=== PATIENT | female | born 1945 | race Caucasian/White ===

== ENCOUNTER → 2016-09-12 | Outpatient (CLI) | payer MEDICARE ==
[2016-09-12 09:30] LABS: PROTHROMBIN TIME 26.6 SEC (11.4-15.4)
== END ==
LOC: OD 08:42
PROVIDERS: ATTEND Internal Medicine
DX: I48.91 Unspecified atrial fibrillation (principal); I48.92 Unspecified atrial flutter; Z79.01 Long term (current) use of anticoagulants
CPT/HCPCS: 36415; 85610

== ENCOUNTER 2017-12-27 02:01 | Inpatient (IN) | payer MEDICARE ==
[2017-12-27 03:05] LABS: ABSOLUTE EOSINOPHILS # (AUTO) 0.1 10^3/uL (0.0-0.6); ABSOLUTE MONOCYTES (AUTO) 0.5 10^3/uL (0.1-1.4); ABSOLUTE NEUT (AUTO) 7.1 10^3/uL (1.7-8.2); BASOPHILS % (AUTO) 0.3 % (0-2); EOSINOPHILS % (AUTO) 1.4 % (0-6); HEMATOCRIT 40.2 % (36.0-47.0); HEMOGLOBIN 13.4 g/dL (12.0-15.5); LYMPHOCYTES % (AUTO) 11.1 % (13-45); MEAN CORPUSCULAR HEMOGLOBIN 30.8 pg (27.0-33.4); MEAN CORPUSCULAR HGB CONC 33.4 g/dL (32.0-36.0); MEAN CORPUSCULAR VOLUME 92 fl (80-97); MONOCYTES % (AUTO) 6.1 % (3-13); PLATELET COUNT 186 10^3/uL (150-450); RED BLOOD COUNT 4.37 10^6/uL (3.72-5.28); RED CELL DISTRIBUTION WIDTH 13.9 % (11.5-14.0); SEGMENTED NEUTROPHILS % (AUTO) 81.1 % (42-78); TOTAL CELLS COUNTED % (AUTO) 100 %; WHITE BLOOD COUNT 8.8 10^3/uL (4.0-10.5)
[2017-12-27 03:11] LABS: ALANINE AMINOTRANSFERASE 23 U/L (9-52); ALBUMIN 3.1 g/dL (3.5-5.0); ALKALINE PHOSPHATASE 56 U/L (38-126); ANION GAP 12 (5-19); ASPARTATE AMINO TRANSFERASE 21 U/L (14-36); BILIRUBIN,DIRECT 0.3 mg/dL (0.0-0.4); BILIRUBIN,TOTAL 0.5 mg/dL (0.2-1.3); BLOOD UREA NITROGEN 26 mg/dL (7-20); CALCIUM 8.4 mg/dL (8.4-10.2); CARBON DIOXIDE 26 mmol/L (22-30); CHLORIDE 109 mmol/L (98-107); GLUCOSE 128 mg/dL (75-110); POTASSIUM 3.6 mmol/L (3.6-5.0); SODIUM 147.2 mmol/L (137-145); TOTAL PROTEIN 5.8 g/dL (6.3-8.2)
--- NOTE | 2017-12-27 03:19 | ER Document Report ---
ED General - General Chief Complaint: Rectal Bleeding Stated Complaint: BLEEDING Notes: Patient is 72-year-old female presents with complaint of rectal bleeding. She is on warfarin for history of atrial fibrillation. She does not have an artificial heart valve. Her GI doctor is Dr. Carrera. Said several bloody bowel movements and passing clots today. The last week she has had some intermittent abdominal cramping. She does have history of diverticulosis. TRAVEL OUTSIDE OF THE [place] IN LAST 30 DAYS: No - Related Data Allergies/Adverse Reactions: codeine [Codeine] Allergy (Verified 12/27/17 02:52) Penicillins Allergy (Verified 12/27/17 02:52) Past Medical History - Social History Smoking Status: Never Smoker Chew tobacco use (# tins/day): No Frequency of alcohol use: None Drug Abuse: None Family History: Reviewed & Not Pertinent Patient has suicidal ideation: No Patient has homicidal ideation: No - Past Medical History Cardiac Medical History: Reports: Hx Atrial Fibrillation, Hx Hypertension Renal/ Medical History: Denies: Hx Peritoneal Dialysis GI Medical History: Reports: Hx Gastroesophageal Reflux Disease Past Surgical History: Reports: Hx Cardiac Surgery - pacemaker, Hx Cholecystectomy, Hx Hysterectomy - Immunizations Hx Diphtheria, Pertussis, Tetanus Vaccination: Yes Review of Systems - Review of Systems Notes: My Normal Review Basic REVIEW OF SYSTEMS: CONSTITUTIONAL : Denies fever, chills, or sweats. Denies recent illness. EENT: Denies eye, ear, throat, or mouth pain or symptoms. Denies nasal or sinus congestion. RESPIRATORY: Denies cough, cold, or chest congestion. Denies shortness of breath, difficulty breathing, or wheezing. GASTROINTESTINAL: Intermittent crampy abdominal pain. Denies nausea, vomiting, or diarrhea. rectal bleeding GENITOURINARY: Denies difficulty urinating, painful urination, burning, frequency, or blood in urine. MUSCULOSKELETAL: Denies neck or back pain or joint pain or swelling. SKIN: Denies rash or skin lesions. HEMATOLOGIC : On warfarin NEUROLOGICAL: Denies altered mental status or loss of consciousness. Denies headache. Denies weakness or paralysis or loss of use of either side. Denies problems with gait or speech. Denies sensory or motor loss. ALL OTHER SYSTEMS REVIEWED AND NEGATIVE. Physical Exam - Vital signs Vitals: Resp BP Pulse Ox 21 H 127/76 H 100 12/27/17 02:10 12/27/17 02:10 12/27/17 02:10 - Notes Notes: General Appearance: Well nourished, alert, cooperative, no acute distress, no obvious discomfort. Well-appearing. Vitals: reviewed, See vital signs table. Head: no swelling or tenderness to the head Eyes: PERRL, EOMI, Conjuctiva clear Mouth: No decreasd moisture Throat: No tonsillar inflammation, Neck: Supple, no neck tenderness, No thyromegaly Lungs: No wheezing, No rales, No rhonci, No accessory muscle use, good air exchange bilaterally. Heart: Normal rate, Regular rythm, No murmur, no rub Abdomen: Normal BS, soft, No rigidity, No abdominal tenderness to palpation, No guarding, no rebound, no abdominal masses, no organomegaly Rectal exam: Small external hemorrhoid that is not actively bleeding. Extremities: strength 5/5 in all extremities, good pulses in all extremities, no swelling or tenderness in the extremities, no edema. Skin: warm, dry, appropriate color, no rash Neuro: speech clear, oriented x 3, normal affect, responds appropriately to questions. Course - Re-evaluation Re-evalutation: 12/27/17 07:08 Patient did have another bloody bowel movement. Therefore gave her FFP due to the recurrent passing of some blood clots. Patient does not have abdominal pain to palpation therefore I do not think CT scan is needed at this time. Suspect she most likely is diverticular bleed. Due to her history of being on antibiotics 2 weeks ago I did order a C. difficile. This is pending. I did speak with the hospitalist, Dr. Wise, agrees with the patient. Dictation of this chart was performed using voice recognition software; therefore, there may be some unintended grammatical errors. - Vital Signs Vital signs: Temp Pulse Resp BP Pulse Ox 97.7 F 90 12 121/65 99 12/27/17 06:17 12/27/17 06:17 12/27/17 06:17 12/27/17 06:17 12/27/17 06:17 - Laboratory Result Diagrams: 12/27/17 02:07 12/27/17 02:07 Laboratory results interpreted by me: 12/27/17 12/27/17 12/27/17 02:07 02:07 02:07 Seg Neutrophils % 81.1 H Lymphocytes % 11.1 L PT 28.0 H Sodium 147.2 H Chloride 109 H BUN 26 H Est GFR (Non-Af Amer) 51 L Glucose 128 H Total Protein 5.8 L Albumin 3.1 L - EKG Interpretation by Me Additional EKG results interpreted by me: 12/27/17 03:18 EKG is reviewed and interpreted by me. EKG shows atrial fibrillation with rate of [address] segment elevation. Patient does have T wave inversions in the anterolateral precordial leads she also has T wave inversions in inferior leads. QRS duration and QTc intervals are within normal range. No old EKG available for comparison. 12/27/17 03:19 Discharge - Discharge Clinical Impression: Rectal bleeding Condition: Stable Disposition: ADMITTED OBSERVATION Admitting Provider: Hospitalist Unit Admitted: ICU
[2017-12-27 03:52] LABS: INTERNATIONAL RATION (INR) 2.48
[2017-12-27] MEDS ORDERED: IPRATROPIUM/ALBUTEROL 0.5-2.5 MG/3 ML AMPUL NEB PRN (04:41)
[2017-12-27] MEDS ORDERED: ACETAMINOPHEN 325 MG TABLET PO PRN (04:41)
[2017-12-27] MEDS ORDERED: NORMAL SALINE 250 ML IV PRN (04:45)
[2017-12-27] MEDS: NORMAL SALINE 1000 ML 1,000 ML IV SCH ×3 (05:04→18:35)
[2017-12-27] MEDS: HEPARIN SOD (PORCINE) 5,000 UNIT/ML 1 ML SYRINGE SUBCUT SCH ×3 (05:05→22:12)
[2017-12-27 06:59] LABS: ABSOLUTE LYMPHOCYTES (AUTO) 0.9 10^3/uL (0.5-4.7); ABSOLUTE MONOCYTES (AUTO) 0.5 10^3/uL (0.1-1.4); ABSOLUTE NEUT (AUTO) 7.8 10^3/uL (1.7-8.2); BASOPHILS % (AUTO) 0.5 % (0-2); EOSINOPHILS % (AUTO) 0.4 % (0-6); HEMATOCRIT 38.3 % (36.0-47.0); LYMPHOCYTES % (AUTO) 9.3 % (13-45); MEAN CORPUSCULAR HGB CONC 33.9 g/dL (32.0-36.0); MEAN CORPUSCULAR VOLUME 92 fl (80-97); MONOCYTES % (AUTO) 5.7 % (3-13); PLATELET COUNT 181 10^3/uL (150-450); RED BLOOD COUNT 4.17 10^6/uL (3.72-5.28); RED CELL DISTRIBUTION WIDTH 13.6 % (11.5-14.0); SEGMENTED NEUTROPHILS % (AUTO) 84.1 % (42-78); TOTAL CELLS COUNTED % (AUTO) 100 %; WHITE BLOOD COUNT 9.3 10^3/uL (4.0-10.5)
[2017-12-27] MEDS: METOPROLOL SUCCINATE 50 MG TAB.SR.24H PO SCH ×2 (09:57→22:16)
[2017-12-27] MEDS ORDERED: METOPROLOL SUCCINATE 50 MG TAB.SR.24H PO SCH (10:00)
[2017-12-27] MEDS ORDERED: PEG 3350/NA SULF,BICARB,CL/KCL 4000 ML PO ONE (10:30)
[2017-12-27 14:05] LABS: ABSOLUTE EOSINOPHILS # (AUTO) 0.1 10^3/uL (0.0-0.6); ABSOLUTE LYMPHOCYTES (AUTO) 1.1 10^3/uL (0.5-4.7); ABSOLUTE MONOCYTES (AUTO) 0.6 10^3/uL (0.1-1.4); ABSOLUTE NEUT (AUTO) 5.9 10^3/uL (1.7-8.2); BASOPHILS % (AUTO) 0.6 % (0-2); EOSINOPHILS % (AUTO) 0.8 % (0-6); LYMPHOCYTES % (AUTO) 13.9 % (13-45); MEAN CORPUSCULAR HEMOGLOBIN 31.5 pg (27.0-33.4); MEAN CORPUSCULAR HGB CONC 34.6 g/dL (32.0-36.0); MEAN CORPUSCULAR VOLUME 91 fl (80-97); MONOCYTES % (AUTO) 8.1 % (3-13); PLATELET COUNT 150 10^3/uL (150-450); RED CELL DISTRIBUTION WIDTH 13.6 % (11.5-14.0); SEGMENTED NEUTROPHILS % (AUTO) 76.6 % (42-78); TOTAL CELLS COUNTED % (AUTO) 100 %; WHITE BLOOD COUNT 7.7 10^3/uL (4.0-10.5)
[2017-12-27 14:09] LABS: HEMOGLOBIN 10.7 g/dL (12.0-15.5)
[2017-12-27] MEDS ORDERED: ONDANSETRON HCL INJ/PF 4 MG/2 ML SDV ONE (17:35)
[2017-12-27] MEDS ORDERED: DIPHENHYDRAMINE HCL 50 MG/ML VIAL ONE (17:35)
[2017-12-27] MEDS ORDERED: NALOXONE HCL INJ/PF 0.4 MG/1 ML SDV ONE (17:35)
[2017-12-27] MEDS ORDERED: FENTANYL CITRATE INJ/PF 100 MCG/2 ML AMPUL ONE (17:36)
[2017-12-27] MEDS ORDERED: MIDAZOLAM 2 MG/2 ML INJ ONE ×2 (17:36)
[2017-12-27] MEDS ORDERED: EPINEPHRINE INJ 1 MG/10 ML DISP.SYRIN ONE (17:37)
[2017-12-27] MEDS ORDERED: FLUMAZENIL INJ 0.5 MG/5 ML VIAL ONE (17:37)
[2017-12-27] MEDS ORDERED: GLUCAGON,HUMAN RECOMB 1 MG INJ ONE (17:37)
--- NOTE | 2017-12-27 18:01 | PDOC H&P ---
History of Present Illness Admission Date/PCP: 12/27/17 04:58 KAREEN MCGOVERN MD Patient complains of: Bright red blood per rectum History of Present Illness: BOB ROD is a 72 year old female with a past medical history of diverticulosis, obesity, atrial fibrillation on Coumadin with an INR of 2.8. Patient presents with several episodes of bright red blood per rectum preceded by abdominal cramping and several days of severe constipation. She is unable to identify blood loss in the emergency room she has several more episodes of bright red blood per rectum. She is ordered FFP, typed and screened, 2 L of normal saline and is referred to the hospitalist for admission. She denies pain or previous episode. Past Medical History Cardiac Medical History: Reports: Atrial Fibrillation, Hypertension Pulmonary Medical History: Reports: Sleep Apnea Endocrine Medical History: Reports: Obesity GI Medical History: Reports: Diverticulitis, Gastroesophageal Reflux Disease Past Surgical History Past Surgical History: Reports: Cholecystectomy, Hysterectomy Social History Information Source: Patient Smoking Status: Never Smoker Frequency of Alcohol Use: None Hx Recreational Drug Use: No Hx Prescription Drug Abuse: No - Advance Directive Resuscitation Status: Full Code Family History Family History: Reviewed & Not Pertinent Parental Family History Reviewed: Yes Children Family History Reviewed: Yes Sibling(s) Family History Reviewed.: Yes Medication/Allergy Home Medications: Amlodipine Besylate [Norvasc 5 mg Tablet] 5 mg PO DAILY 12/27/17 Irbesartan/Hydrochlorothiazide [Avalide 300-12.5 Mg Tablet] 1 each PO DAILY 06/04 Linaclotide [Linzess] 290 mcg PO DAILY 12/27/17 Metoprolol Succinate [Toprol XL 100 mg Tablet] 150 mg PO Q12 12/27/17 Omeprazole 40 mg PO DAILYP PRN 12/27/17 Warfarin Sodium [Coumadin 3 mg Tablet] 4.5 mg PO QHS 12/27/17 Allergies/Adverse Reactions: codeine [Codeine] Allergy (Verified 12/27/17 08:39) Penicillins Allergy (Verified 12/27/17 08:39) Review of Systems Constitutional: ABSENT: chills, fever(s), headache(s), weight gain, weight loss Eyes: ABSENT: visual disturbances Ears: ABSENT: hearing changes Cardiovascular: ABSENT: chest pain, dyspnea on exertion, edema, orthropnea, palpitations Respiratory: ABSENT: cough, hemoptysis Gastrointestinal: ABSENT: abdominal pain, constipation, diarrhea, hematemesis, hematochezia, nausea, vomiting Genitourinary: ABSENT: dysuria, hematuria Musculoskeletal: ABSENT: joint swelling Integumentary: ABSENT: rash, wounds Neurological: ABSENT: abnormal gait, abnormal speech, confusion, dizziness, focal weakness, syncope Psychiatric: ABSENT: anxiety, depression, homidical ideation, suicidal ideation Endocrine: ABSENT: cold intolerance, heat intolerance, polydipsia, polyuria Hematologic/Lymphatic: ABSENT: easy bleeding, easy bruising Physical Exam Vital Signs: Temp Pulse Resp BP Pulse Ox 97.7 F 87 19 149/75 H 100 12/27/17 16:11 12/27/17 16:11 12/27/17 16:41 12/27/17 16:41 12/27/17 16:41 Intake & Output 12/26/17 12/27/17 12/28/17 11:59 11:59 11:59 Intake Total 0 576 Output Total 200 Balance -200 576 Weight 113.6 kg General appearance: PRESENT: cooperative, mild distress, morbidly obese, well- developed, well-nourished. ABSENT: disheveled Head exam: PRESENT: atraumatic, normocephalic Eye exam: PRESENT: conjunctiva pink, EOMI, PERRLA. ABSENT: scleral icterus Ear exam: PRESENT: normal external ear exam Mouth exam: PRESENT: moist, tongue midline Neck exam: ABSENT: carotid bruit, JVD, lymphadenopathy, thyromegaly Respiratory exam: PRESENT: clear to auscultation aristides. ABSENT: rales, rhonchi, wheezes Cardiovascular exam: PRESENT: RRR. ABSENT: diastolic murmur, rubs, systolic murmur Pulses: PRESENT: normal dorsalis pedis pul Vascular exam: PRESENT: normal capillary refill GI/Abdominal exam: PRESENT: normal bowel sounds, soft. ABSENT: distended, guarding, mass, organolmegaly, rebound, tenderness Rectal exam: PRESENT: deferred Extremities exam: PRESENT: full ROM. ABSENT: calf tenderness, clubbing, pedal edema Neurological exam: PRESENT: alert, awake, oriented to person, oriented to place , oriented to time, oriented to situation, CN II-XII grossly intact. ABSENT: motor sensory deficit Psychiatric exam: PRESENT: appropriate affect, normal mood. ABSENT: homicidal ideation, suicidal ideation Skin exam: PRESENT: dry, intact, warm. ABSENT: cyanosis, rash Results Laboratory Results: 12/27/17 13:53 12/27/17 12/27/17 06:45 13:53 WBC 9.3 7.7 RBC 4.17 3.40 L Hgb 13.0 10.7 L D Hct 38.3 31.0 L MCV 92 91 MCH 31.0 31.5 MCHC 33.9 34.6 RDW 13.6 13.6 Plt Count 181 150 Seg Neutrophils % 84.1 H 76.6 Lymphocytes % 9.3 L 13.9 Monocytes % 5.7 8.1 Eosinophils % 0.4 0.8 Basophils % 0.5 0.6 Absolute Neutrophils 7.8 5.9 Absolute Lymphocytes 0.9 1.1 Absolute Monocytes 0.5 0.6 Absolute Eosinophils 0.0 0.1 Absolute Basophils 0.0 0.0 Assessment & Plan - Diagnosis (1) Rectal bleeding Is this a current diagnosis for this admission?: Yes Plan: ICU admission, likely diverticular bleed given history of constipation and diverticulosis. Type and screen 2 units of packed red blood cells, FFP given continued bright red blood per rectum. Gastroenterology consulted. (2) Atrial fibrillation Is this a current diagnosis for this admission?: Yes Plan: Rate controlled, continue outpatient regiment (3) Anticoagulation adequate Is this a current diagnosis for this admission?: Yes Plan: FFP ordered, Coumadin held for active bleed. - Time Time Spent: 50 to 70 Minutes - Inpatient Certification Medical Necessity: Need Close Monitoring Due to Risk of Patient Decompensation
[2017-12-27 18:04] LABS: ABSOLUTE EOSINOPHILS # (AUTO) 0.1 10^3/uL (0.0-0.6); ABSOLUTE LYMPHOCYTES (AUTO) 1.2 10^3/uL (0.5-4.7); ABSOLUTE MONOCYTES (AUTO) 0.6 10^3/uL (0.1-1.4); ABSOLUTE NEUT (AUTO) 5.1 10^3/uL (1.7-8.2); BASOPHILS % (AUTO) 0.5 % (0-2); EOSINOPHILS % (AUTO) 1.1 % (0-6); HEMATOCRIT 29.1 % (36.0-47.0); LYMPHOCYTES % (AUTO) 16.7 % (13-45); MEAN CORPUSCULAR HEMOGLOBIN 31.2 pg (27.0-33.4); MEAN CORPUSCULAR HGB CONC 34.4 g/dL (32.0-36.0); MEAN CORPUSCULAR VOLUME 91 fl (80-97); MONOCYTES % (AUTO) 8.8 % (3-13); PLATELET COUNT 151 10^3/uL (150-450); RED BLOOD COUNT 3.21 10^6/uL (3.72-5.28); RED CELL DISTRIBUTION WIDTH 13.5 % (11.5-14.0); SEGMENTED NEUTROPHILS % (AUTO) 72.9 % (42-78); TOTAL CELLS COUNTED % (AUTO) 100 %; WHITE BLOOD COUNT 6.9 10^3/uL (4.0-10.5)
--- NOTE | 2017-12-27 20:23 | PDOC CONSULTATION ---
Consultation Consult Date: 12/27/17 History of Present Illness Admission Date/PCP: 12/27/17 04:58 KAREEN MCGOVERN MD History of Present Illness: BOB ROD is a 72 year old female Patient was admitted last night with acute rectal bleeding. She started bleeding yesterday and has had multiple episodes of bright red blood per rectum. She denies abdominal pain, nausea, or vomiting. She has a history of diverticular disease and her last colonoscopy was almost 10 years ago. On admission her hemoglobin was 13 and 12 hours later it is down to 10.7. Her platelet count is normal but her INR was 2.48. She was taking warfarin at home and has received 2 units of FFP. Past Medical History Cardiac Medical History: Reports: Atrial Fibrillation, Hypertension Pulmonary Medical History: Reports: Sleep Apnea Endocrine Medical History: Reports: Obesity GI Medical History: Reports: Diverticulitis, Gastroesophageal Reflux Disease Past Surgical History Past Surgical History: Reports: Cholecystectomy, Hysterectomy Social History Smoking Status: Never Smoker Frequency of Alcohol Use: None Hx Recreational Drug Use: No Hx Prescription Drug Abuse: No - Advance Directive Resuscitation Status: Full Code Family History Family History: Reviewed & Not Pertinent Parental Family History Reviewed: No Children Family History Reviewed: NA Sibling(s) Family History Reviewed.: NA Medication/Allergy Home Medications: Amlodipine Besylate [Norvasc 5 mg Tablet] 5 mg PO DAILY 12/27/17 Irbesartan/Hydrochlorothiazide [Avalide 300-12.5 Mg Tablet] 1 each PO DAILY 06/04 Linaclotide [Linzess] 290 mcg PO DAILY 12/27/17 Metoprolol Succinate [Toprol XL 100 mg Tablet] 150 mg PO Q12 12/27/17 Omeprazole 40 mg PO DAILYP PRN 12/27/17 Warfarin Sodium [Coumadin 3 mg Tablet] 4.5 mg PO QHS 12/27/17 Allergies/Adverse Reactions: codeine [Codeine] Allergy (Verified 12/27/17 08:39) Penicillins Allergy (Verified 12/27/17 08:39) Review of Systems All systems: reviewed and no additional remarkable complaints except as stated Physical Exam Vital Signs: Temp Pulse Resp BP Pulse Ox 98.1 F 111 H 19 134/68 H 100 12/27/17 18:00 12/27/17 18:00 12/27/17 18:11 12/27/17 18:11 12/27/17 18:11 Intake & Output 12/26/17 12/27/17 12/28/17 06:59 06:59 06:59 Intake Total 2926 Output Total 200 Balance 2726 Weight 113.6 kg 113.6 kg Exam: General: Patient is alert. HEENT: There is some pallor but no jaundice. PERRLA. Oropharynx normal Respiratory: No chest deformity. No respiratory distress. Chest wall palpitation was unremarkable. Breath sounds were normal Cardiovascular: Heart sounds 1 and 2 normal with no murmurs. Abdominal: Abdomen is soft with no tenderness. Difficult to feel for masses due to obesity. No ascites demonstrated. Bowel sounds active. Rectal examination was deferred. Extremities: No edema Neurological: Alert and oriented x4. Grossly nonfocal. Normal speech Skin: No significant rash Psychological: Normal affect Results Laboratory Results: 12/27/17 17:55 12/27/17 12/27/17 12/27/17 06:45 13:53 17:55 WBC 9.3 7.7 6.9 RBC 4.17 3.40 L 3.21 L Hgb 13.0 10.7 L D 10.0 L Hct 38.3 31.0 L 29.1 L MCV 92 91 91 MCH 31.0 31.5 31.2 MCHC 33.9 34.6 34.4 RDW 13.6 13.6 13.5 Plt Count 181 150 151 Seg Neutrophils % 84.1 H 76.6 72.9 Lymphocytes % 9.3 L 13.9 16.7 Monocytes % 5.7 8.1 8.8 Eosinophils % 0.4 0.8 1.1 Basophils % 0.5 0.6 0.5 Absolute Neutrophils 7.8 5.9 5.1 Absolute Lymphocytes 0.9 1.1 1.2 Absolute Monocytes 0.5 0.6 0.6 Absolute Eosinophils 0.0 0.1 0.1 Absolute Basophils 0.0 0.0 0.0 Assessment & Plan - Diagnosis (1) Diverticulosis of colon with hemorrhage Is this a current diagnosis for this admission?: Yes Plan: I suspect this is diverticular bleeding made worse by her coagulopathy from Coumadin use. The need for upper and lower endoscopy was explained to the patient and she is in agreement. She may need to be transfused if her hemoglobin continues to drop. (2) Coagulopathy Is this a current diagnosis for this admission?: Yes (3) Atrial fibrillation Is this a current diagnosis for this admission?: Yes (4) Rectal bleeding Is this a current diagnosis for this admission?: Yes
--- NOTE | 2017-12-27 20:26 | Operative Report ---
Operative Report DATE OF SURGERY: 12/27/17 Operative Report: Pre-op diagnosis: Acute GI bleeding Post-op diagnosis: 1. Mild antral gastritis 2. Severe sigmoid diverticulosis with scattered diverticuli in the mid and right colon 3. Maroon colored blood noted all over the colon more so in the left colon Surgery: Upper endoscopy with biopsy, and Colonoscopy Medications: Versed 2mg, Fentanyl 100mcg IV push Tissue removed: Antral and gastric body biopsy Procedure: After informed consent obtained from patient, patient's pharynx was sprayed with [place] and conscious sedation was achieved. The upper endoscope was then inserted into the esophagus under direct vision and advanced into the stomach and further into the duodenum. Detailed examination of the duodenum, stomach and the esophagus was then performed. A digital rectal examination was performed and this was unremarkable. The colonoscope was inserted into the rectum and advanced to the cecum. The appendiceal orifice and the terminal ileum were both identified. The mucosa was examined into details as the colonoscope was slowly pulled out of the patient. The endoscope was retroflexed in the rectum. Patient tolerated the procedure well. Findings Stomach: Mild erythema in the antrum Duodenum: Normal Cecum: Normal Ascending colon: Few diverticuli Transverse colon: Few diverticuli Descending colon: Multiple diverticuli Sigmoid colon: Multiple [place] diverticuli with some areas of spasm Rectum: Normal except for internal hemorrhoids Plan: She likely bled from her diverticular disease. No bleeding diverticuli was identified. She will need a bleeding scan and surgical evaluation if active bleeding resumes OPERATION: .
--- NOTE | 2017-12-27 20:30 | Operative Report ---
Operative Report DATE OF SURGERY: 12/27/17 Operative Report: This is an addendum to the procedure note dictated on 12/27/2017 at 825p. Patient did have two polyps in the sigmoid ranging from 6-8 mm. These were not removed due to her current active GI bleed and elevated INR. She will need a repeat colonoscopy in the future to remove this polyps OPERATION: .
--- NOTE | 2017-12-27 20:34 | EKG REPORT ---
SEVERITY:- ABNORMAL ECG - AFIB/FLUT AND V-PACED COMPLEXES : Confirmed by: Pat Arnett MD 27-Dec-2017 20:33:27
[2017-12-27 21:12] LABS: INTERNATIONAL RATION (INR) 1.72
[2017-12-27] MEDS ORDERED: METOPROLOL TARTRATE PF/INJ 5 MG/5 ML SDV IV ONE (22:00)
[2017-12-27] MEDS: 1/2 NORMAL SALINE 1,000 ML IV PRN (22:17)
[2017-12-28 00:26] LABS: ABSOLUTE BASOPHILS # (AUTO) 0.1 10^3/uL (0.0-0.2); ABSOLUTE EOSINOPHILS # (AUTO) 0.1 10^3/uL (0.0-0.6); ABSOLUTE MONOCYTES (AUTO) 0.8 10^3/uL (0.1-1.4); ABSOLUTE NEUT (AUTO) 8.2 10^3/uL (1.7-8.2); BASOPHILS % (AUTO) 0.5 % (0-2); EOSINOPHILS % (AUTO) 0.8 % (0-6); HEMATOCRIT 27.4 % (36.0-47.0); HEMOGLOBIN 9.4 g/dL (12.0-15.5); LYMPHOCYTES % (AUTO) 9.7 % (13-45); MEAN CORPUSCULAR HGB CONC 34.3 g/dL (32.0-36.0); MEAN CORPUSCULAR VOLUME 90 fl (80-97); MONOCYTES % (AUTO) 7.9 % (3-13); PLATELET COUNT 137 10^3/uL (150-450); RED BLOOD COUNT 3.02 10^6/uL (3.72-5.28); RED CELL DISTRIBUTION WIDTH 13.6 % (11.5-14.0); SEGMENTED NEUTROPHILS % (AUTO) 81.1 % (42-78); TOTAL CELLS COUNTED % (AUTO) 100 %
[2017-12-28] MEDS: 1/2 NORMAL SALINE 1,000 ML IV PRN (05:41)
[2017-12-28] MEDS: HEPARIN SOD (PORCINE) 5,000 UNIT/ML 1 ML SYRINGE SUBCUT SCH ×3 (05:50→21:50)
[2017-12-28 06:43] LABS: ALANINE AMINOTRANSFERASE 24 U/L (9-52); ALBUMIN 2.9 g/dL (3.5-5.0); ALKALINE PHOSPHATASE 43 U/L (38-126); ANION GAP 10 (5-19); ASPARTATE AMINO TRANSFERASE 27 U/L (14-36); BILIRUBIN,DIRECT 0.3 mg/dL (0.0-0.4); BILIRUBIN,TOTAL 0.8 mg/dL (0.2-1.3); BLOOD UREA NITROGEN 14 mg/dL (7-20); CALCIUM 7.7 mg/dL (8.4-10.2); CARBON DIOXIDE 26 mmol/L (22-30); CHLORIDE 110 mmol/L (98-107); GLUCOSE 86 mg/dL (75-110); PHOSPHORUS 2.5 mg/dL (2.5-4.5); POTASSIUM 3.2 mmol/L (3.6-5.0); SODIUM 145.7 mmol/L (137-145); TOTAL PROTEIN 5.6 g/dL (6.3-8.2)
[2017-12-28 07:03] LABS: ABSOLUTE EOSINOPHILS # (AUTO) 0.1 10^3/uL (0.0-0.6); ABSOLUTE LYMPHOCYTES (AUTO) 0.6 10^3/uL (0.5-4.7); ABSOLUTE MONOCYTES (AUTO) 0.7 10^3/uL (0.1-1.4); ABSOLUTE NEUT (AUTO) 6.5 10^3/uL (1.7-8.2); BASOPHILS % (AUTO) 0.6 % (0-2); EOSINOPHILS % (AUTO) 1.4 % (0-6); HEMATOCRIT 29.6 % (36.0-47.0); HEMOGLOBIN 10.2 g/dL (12.0-15.5); LYMPHOCYTES % (AUTO) 7.5 % (13-45); MEAN CORPUSCULAR HEMOGLOBIN 31.5 pg (27.0-33.4); MEAN CORPUSCULAR HGB CONC 34.6 g/dL (32.0-36.0); MEAN CORPUSCULAR VOLUME 91 fl (80-97); MONOCYTES % (AUTO) 9.1 % (3-13); PLATELET COUNT 129 10^3/uL (150-450); RED BLOOD COUNT 3.25 10^6/uL (3.72-5.28); RED CELL DISTRIBUTION WIDTH 13.3 % (11.5-14.0); SEGMENTED NEUTROPHILS % (AUTO) 81.4 % (42-78); TOTAL CELLS COUNTED % (AUTO) 100 %; WHITE BLOOD COUNT 7.9 10^3/uL (4.0-10.5)
[2017-12-28] MEDS: METOPROLOL SUCCINATE 50 MG TAB.SR.24H PO SCH ×2 (10:03→21:58)
--- NOTE | 2017-12-28 14:45 | PDOC PROGRESS REPORT ---
Subjective Progress Note for:: 12/28/17 Subjective:: Doing better today. Noted small amount of blood in stool today however significantly decreased. Colonoscopy yesterday and tolerated well. Tolerated cler liquids, will advance. No other complaints. Denies fevers, chills, CP. Agreeable with transfer out of ICU today. Reason For Visit: DIVERTIC BLEED, ANTICOAGULATED, AFIB Physical Exam Vital Signs: Temp Pulse Resp BP Pulse Ox 99.4 F 75 21 H 131/68 H 95 12/28/17 12:19 12/28/17 12:19 12/28/17 12:19 12/28/17 12:19 12/28/17 12:19 Intake & Output 12/27/17 12/28/17 12/29/17 06:59 06:59 06:59 Intake Total 3326 Output Total 1080 Balance 2246 Weight 113.6 kg 115.5 kg General appearance: PRESENT: no acute distress, cooperative, obese Head exam: PRESENT: normocephalic Mouth exam: PRESENT: moist Respiratory exam: PRESENT: unlabored Cardiovascular exam: PRESENT: RRR. ABSENT: tachycardia GI/Abdominal exam: PRESENT: normal bowel sounds, soft. ABSENT: tenderness Neurological exam: PRESENT: alert, awake, CN II-XII grossly intact Psychiatric exam: PRESENT: appropriate affect Skin exam: PRESENT: dry, intact Results Laboratory Results: 12/28/17 06:09 12/28/17 06:09 12/27/17 12/28/17 12/28/17 17:55 00:17 06:09 WBC 6.9 10.0 RBC 3.21 L 3.02 L Hgb 10.0 L 9.4 L Hct 29.1 L 27.4 L MCV 91 90 MCH 31.2 31.0 MCHC 34.4 34.3 RDW 13.5 13.6 Plt Count 151 137 L Seg Neutrophils % 72.9 81.1 H Lymphocytes % 16.7 9.7 L Monocytes % 8.8 7.9 Eosinophils % 1.1 0.8 Basophils % 0.5 0.5 Absolute Neutrophils 5.1 8.2 Absolute Lymphocytes 1.2 1.0 Absolute Monocytes 0.6 0.8 Absolute Eosinophils 0.1 0.1 Absolute Basophils 0.0 0.1 Sodium 145.7 H Potassium 3.2 L Chloride 110 H Carbon Dioxide 26 Anion Gap 10 BUN 14 Creatinine 0.77 Est GFR ( Amer) > 60 Est GFR (Non-Af Amer) > 60 Glucose 86 Calcium 7.7 L Phosphorus 2.5 Magnesium 1.8 Total Bilirubin 0.8 AST 27 ALT 24 Alkaline Phosphatase 43 Total Protein 5.6 L Albumin 2.9 L 12/28/ 06:09 WBC 7.9 RBC 3.25 L Hgb 10.2 L Hct 29.6 L MCV 91 MCH 31.5 MCHC 34.6 RDW 13.3 Plt Count 129 L Seg Neutrophils % 81.4 H Lymphocytes % 7.5 L Monocytes % 9.1 Eosinophils % 1.4 Basophils % 0.6 Absolute Neutrophils 6.5 Absolute Lymphocytes 0.6 Absolute Monocytes 0.7 Absolute Eosinophils 0.1 Absolute Basophils 0.0 Sodium Potassium Chloride Carbon Dioxide Anion Gap BUN Creatinine Est GFR ( Amer) Est GFR (Non-Af Amer) Glucose Calcium Phosphorus Magnesium Total Bilirubin AST ALT Alkaline Phosphatase Total Protein Albumin Assessment & Plan - Diagnosis (1) Diverticulosis of colon with hemorrhage Is this a current diagnosis for this admission?: Yes Plan: EGD on 12/27. Most likely cause of bleeding. Patient is on coumadin as well. INR was not supratherapeutic however may have contributed. Also noted to have 2 colonic polyps. Received 2u pRBC at admission - H&H has stabilized over last 24 hours - Will transfer out to ICU to tele bed - Monitor for additional day - If stable, can discharge over weekend (2) Atrial fibrillation Is this a current diagnosis for this admission?: Yes Plan: Chronic Afib. Well controlled on Toprol XL (3) Coagulopathy Is this a current diagnosis for this admission?: Yes Plan: Patient is on coumadin for Afib. Discussed with patient that this is not the best option. Would discuss with PCP role of DOAC. Counseling provided and patient agreeable. - Time Time Spent with patient: Less than 15 minutes Anticipated discharge: Home with Homehealth Within: within 24 hours
[2017-12-29] MEDS: HEPARIN SOD (PORCINE) 5,000 UNIT/ML 1 ML SYRINGE SUBCUT SCH (06:25)
[2017-12-29 08:44] VITALS: BP 134/86
[2017-12-29] MEDS ORDERED: POTASSIUM CHLORIDE 10 MEQ CAPSULE.ER PO SCH (10:00)
[2017-12-29] MEDS: METOPROLOL SUCCINATE 50 MG TAB.SR.24H PO SCH (10:22)
--- NOTE | 2017-12-29 14:54 | PDOC DISCHARGE SUMMARY ---
General - Admit/Disc Date/PCP Admission Date/Primary Care Provider: 12/27/17 04:58 KAREEN MCGOVERN MD Discharge Date: 12/29/17 - Discharge Diagnosis (1) Diverticulosis of colon with hemorrhage Is this a current diagnosis for this admission?: Yes Summary: EGD on 12/27. [place] to be diverticular bleeding which could have been exacerbated by coumadin use. INR was not supratherapeutic however may have contributed. Also noted to have 2 colonic polyps. Received 2u pRBC at admission. H&H has stabilized and improving on day of discharge. No additional bloody stools. OK to re-start coumadin at home on 12/29 (2) Atrial fibrillation Is this a current diagnosis for this admission?: Yes Summary: Chronic Afib. Well controlled on Toprol XL. Re-start Coumadin tonight, 12/29 per above (3) Coagulopathy Is this a current diagnosis for this admission?: Yes Summary: Patient is on coumadin for Afib. Discussed with patient that this is not the best option. Would discuss with PCP role of DOAC. Counseling provided and patient agreeable. - Additional Information Resuscitation Status: Full Code Discharge Diet: As Tolerated, Cardiac Discharge Activity: Activity As Tolerated Home Medications: Amlodipine Besylate [Norvasc 5 mg Tablet] 5 mg PO DAILY 12/27/17 Irbesartan/Hydrochlorothiazide [Avalide 300-12.5 mg Tablet] 1 each PO DAILY 06/04 Linaclotide [Linzess] 290 mcg PO DAILY 12/27/17 Metoprolol Succinate [Toprol XL 100 mg Tablet] 150 mg PO Q12 12/27/17 Omeprazole 40 mg PO DAILYP PRN 12/27/17 Warfarin Sodium [Coumadin 3 mg Tablet] 4.5 mg PO QHS 12/27/17 History of Present Illness History of Present Illness: BOB ROD is a 72 year old female with a past medical history of diverticulosis, obesity, atrial fibrillation on Coumadin with an INR of 2.8. Patient presents with several episodes of bright red blood per rectum preceded by abdominal cramping and several days of severe constipation. She is unable to identify blood loss in the emergency room she has several more episodes of bright red blood per rectum. She is ordered FFP, typed and screened, 2 L of normal saline and is referred to the hospitalist for admission. She denies pain or previous episode. Physical Exam Vital Signs: Temp Pulse Resp BP Pulse Ox 97.9 F 76 17 134/86 H 99 12/29/17 12:02 12/29/17 12:02 12/29/17 12:02 12/29/17 12:02 12/29/17 12:02 Intake & Output 12/28/17 12/29/17 12/30/17 06:59 06:59 06:59 Intake Total 3326 0 Output Total 1080 1800 Balance 2246 -1800 Weight 115.5 kg 115.3 kg General appearance: PRESENT: no acute distress, cooperative, obese Head exam: PRESENT: normocephalic Mouth exam: PRESENT: moist Respiratory exam: PRESENT: unlabored Cardiovascular exam: PRESENT: irregular rhythm. ABSENT: tachycardia GI/Abdominal exam: PRESENT: soft. ABSENT: tenderness Neurological exam: PRESENT: alert, awake, CN II-XII grossly intact Psychiatric exam: PRESENT: appropriate affect Results Laboratory Results: 12/28/17 06:09 12/28/17 06:09 Qualifiers - * PATIENT BEING DISCHARGED WITH ANY OF THE FOLLOWING DIAGNOSIS: No Plan Time Spent: Less than 30 Minutes
== END 2017-12-29 13:00 | disposition home or self-care (01) | DRG 378 ==
LOC: ER 02:01 → EH 04:58 → ICU 06:00
PROVIDERS: ADMIT Internal Medicine; ATTEND Internal Medicine
PROC: 30233K1 Transfusion of Nonautologous Frozen Plasma into Peripheral Vein, Percutaneous Approach (ICD-10-PCS; 2017-12-27)
PROC: 0DJD8ZZ Inspection of Lower Intestinal Tract, Via Natural or Artificial Opening Endoscopic (ICD-10-PCS; principal; 2017-12-27 18:00)
PROC: 0DB68ZX Excision of Stomach, Via Natural or Artificial Opening Endoscopic, Diagnostic (ICD-10-PCS; 2017-12-27 18:00)
DX: K57.33 Diverticulitis of large intestine without perforation or abscess with bleeding (principal); D68.32 Hemorrhagic disorder due to extrinsic circulating anticoagulants; I48.2 Chronic atrial fibrillation; K63.5 Polyp of colon; K59.00 Constipation, unspecified; K21.9 Gastro-esophageal reflux disease without esophagitis; T45.515A Adverse effect of anticoagulants, initial encounter; K29.60 Other gastritis without bleeding; I10 Essential (primary) hypertension; E66.9 Obesity, unspecified; G47.30 Sleep apnea, unspecified; Z79.01 Long term (current) use of anticoagulants; Z88.6 Allergy status to analgesic agent; Z88.0 Allergy status to penicillin; Z95.0 Presence of cardiac pacemaker; Z90.49 Acquired absence of other specified parts of digestive tract; Z90.710 Acquired absence of both cervix and uterus; Z68.36 Body mass index [BMI] 36.0-36.9, adult
CPT/HCPCS: 36415; 36430; 43239; 45378; 80048; 80053; 80076; 83735; 84100; 85025; 85610; 86850; 86900; 86901; 86920; 87045; 87205; 87493; 88305; 93005; 93010; 99285; J0171; J1200; J1610; J2250; J2310; J2405; J3010; J3490; J7030; P9017

== ENCOUNTER 2018-01-03 16:43 | Inpatient (IN) | payer MEDICARE ==
--- NOTE | 2018-01-03 17:24 | ER Document Report ---
ED Medical Screen (RME) - General Chief Complaint: Rectal Bleeding Stated Complaint: RECTAL BLEED Time Seen by Provider: 01/03/18 17:22 Notes: RAPID MEDICAL EVALUATION DISCLOSURE I have seen this patient as part of a Rapid Medical Evaluation and, if applicable, placed any initially appropriate orders. The patient will be seen and fully evaluated, including a full history and physical exam, by a provider ( in Main ED or Fast Track) when a room becomes available. 72-year-old female PMH diverticular bleeding here with complaints of bleeding that started earlier today. "It is gushing out" with every bowel movement. She used to be on Coumadin however she was taken off of Coumadin and was switched to Xarelto which she started taking 4 days ago. She just underwent an endoscopy, upper and lower, last week by Dr. Carrera. EXAM No abdominal TTP TRAVEL OUTSIDE OF THE [place] IN LAST 30 DAYS: No - Related Data Allergies/Adverse Reactions: codeine [Codeine] Allergy (Verified 01/03/18 16:46) Penicillins Allergy (Verified 01/03/18 16:46) Past Medical History - Social History Chew tobacco use (# tins/day): No Frequency of alcohol use: None Drug Abuse: None - Past Medical History Cardiac Medical History: Reports: Hx Atrial Fibrillation, Hx Hypertension Pulmonary Medical History: Reports: Hx Sleep Apnea Neurological Medical History: Denies: Hx Seizures Renal/ Medical History: Denies: Hx Peritoneal Dialysis GI Medical History: Reports: Hx Diverticulitis, Hx Gastroesophageal Reflux Disease Past Surgical History: Reports: Hx Cardiac Surgery - pacemaker, Hx Cholecystectomy, Hx Hysterectomy - Immunizations Hx Diphtheria, Pertussis, Tetanus Vaccination: Yes History of Influenza Vaccine for 03/2017 - 08/2017 Season: Yes Influenza Administration Date for 03/2017 - 08/2017 Season: 04/27/18 Physical Exam - Vital signs Vitals: Temp Pulse Resp BP Pulse Ox 98.6 F 68 18 135/86 H 97 01/03/18 16:49 01/03/18 16:49 01/03/18 16:49 01/03/18 16:49 01/03/18 16:49 Course - Vital Signs Vital signs: Temp Pulse Resp BP Pulse Ox 98.6 F 68 18 135/86 H 97 01/03/18 16:49 01/03/18 16:49 01/03/18 16:49 01/03/18 16:49 01/03/18 16:49
[2018-01-03 17:59] LABS: ABSOLUTE BASOPHILS # (AUTO) 0.1 10^3/uL (0.0-0.2); ABSOLUTE EOSINOPHILS # (AUTO) 0.1 10^3/uL (0.0-0.6); ABSOLUTE LYMPHOCYTES (AUTO) 0.8 10^3/uL (0.5-4.7); ABSOLUTE MONOCYTES (AUTO) 0.3 10^3/uL (0.1-1.4); ABSOLUTE NEUT (AUTO) 5.4 10^3/uL (1.7-8.2); BASOPHILS % (AUTO) 0.8 % (0-2); EOSINOPHILS % (AUTO) 1.3 % (0-6); HEMATOCRIT 26.3 % (36.0-47.0); MEAN CORPUSCULAR HEMOGLOBIN 31.9 pg (27.0-33.4); MEAN CORPUSCULAR HGB CONC 34.3 g/dL (32.0-36.0); MEAN CORPUSCULAR VOLUME 93 fl (80-97); MONOCYTES % (AUTO) 5.2 % (3-13); PLATELET COUNT 283 10^3/uL (150-450); RED BLOOD COUNT 2.82 10^6/uL (3.72-5.28); RED CELL DISTRIBUTION WIDTH 13.8 % (11.5-14.0); SEGMENTED NEUTROPHILS % (AUTO) 80.7 % (42-78); TOTAL CELLS COUNTED % (AUTO) 100 %; WHITE BLOOD COUNT 6.7 10^3/uL (4.0-10.5)
[2018-01-03 18:16] LABS: ALANINE AMINOTRANSFERASE 23 U/L (9-52); ALBUMIN 3.3 g/dL (3.5-5.0); ALKALINE PHOSPHATASE 49 U/L (38-126); ANION GAP 9 (5-19); ASPARTATE AMINO TRANSFERASE 22 U/L (14-36); BILIRUBIN,DIRECT 0.2 mg/dL (0.0-0.4); BILIRUBIN,TOTAL 0.4 mg/dL (0.2-1.3); BLOOD UREA NITROGEN 19 mg/dL (7-20); CALCIUM 8.7 mg/dL (8.4-10.2); CARBON DIOXIDE 25 mmol/L (22-30); CHLORIDE 111 mmol/L (98-107); GLUCOSE 107 mg/dL (75-110); LIPASE 217.1 U/L (23-300); SODIUM 145.2 mmol/L (137-145); TOTAL PROTEIN 5.9 g/dL (6.3-8.2)
--- NOTE | 2018-01-03 18:39 | ER Document Report ---
ED General - General Chief Complaint: Rectal Bleeding Stated Complaint: RECTAL BLEED Time Seen by Provider: 01/03/18 17:22 Information source: Patient TRAVEL OUTSIDE OF THE [place] IN LAST 30 DAYS: No - HPI Notes: 72-year-old female presents with rectal bleeding that started this morning. She reports about 6 episodes of bright red blood with clots. Denies diarrhea. Has mild abdominal cramping today. Had near syncopal episode prior to arrival. Had nausea without vomiting. She was discharged from the hospital December 29 for the same. She was on Coumadin upon discharge and switched to Xarelto by her primary care physician 4 days ago. She has history of atrial fibrillation. She had EGD and colonoscopy during admission and found to have polyps with likely diverticular source on December 27. She received 2 units of packed red blood cells and FFP. Continues to feel weak. - Related Data Allergies/Adverse Reactions: codeine [Codeine] Allergy (Verified 01/03/18 16:46) Penicillins Allergy (Verified 01/03/18 16:46) Past Medical History - Social History Smoking Status: Never Smoker Chew tobacco use (# tins/day): No Frequency of alcohol use: None Drug Abuse: None Family History: Reviewed & Not Pertinent Patient has suicidal ideation: No Patient has homicidal ideation: No - Past Medical History Cardiac Medical History: Reports: Hx Atrial Fibrillation, Hx Hypertension Pulmonary Medical History: Reports: Hx Sleep Apnea Neurological Medical History: Denies: Hx Seizures Renal/ Medical History: Denies: Hx Peritoneal Dialysis GI Medical History: Reports: Hx Diverticulitis, Hx Gastroesophageal Reflux Disease Past Surgical History: Reports: Hx Cardiac Surgery - pacemaker, Hx Cholecystectomy, Hx Hysterectomy, Hx Orthopedic Surgery - L wrist - Immunizations Hx Diphtheria, Pertussis, Tetanus Vaccination: Yes Hx Pneumococcal Vaccination: 04/27/18 Review of Systems - Review of Systems Notes: REVIEW OF SYSTEMS: CONSTITUTIONAL: -fevers, -chills, + fatigue EENT: -eye pain, -difficulty swallowing, -nasal congestion CARDIOVASCULAR: -chest pain, + near syncope. RESPIRATORY: -cough, -SOB GASTROINTESTINAL: +abdominal pain, +nausea, -vomiting, -diarrhea, +rectal bleeding GENITOURINARY: -dysuria, -hematuria MUSCULOSKELETAL: -back pain, -neck pain SKIN: -rash or skin lesions. HEMATOLOGIC: -easy bruising or bleeding. LYMPHATIC: -swollen, enlarged glands. NEUROLOGICAL: -altered mental status or loss of consciousness, -headache, - neurologic symptoms PSYCHIATRIC: -anxiety, -depression. Physical Exam - Vital signs Vitals: Temp Pulse Resp BP Pulse Ox 98.6 F 68 18 135/86 H 97 01/03/18 16:49 01/03/18 16:49 01/03/18 16:49 01/03/18 16:49 01/03/18 16:49 Interpretation: Hypertensive - Notes Notes: PHYSICAL EXAMINATION: GENERAL: Well-appearing, well-nourished and in no acute distress. Morbidly obese HEAD: Atraumatic, normocephalic. EYES: Pupils equal round and reactive to light, extraocular movements intact, conjunctiva are normal. ENT: nares patent, oropharynx clear without exudates. Moist mucous membranes. NECK: Normal range of motion, supple without lymphadenopathy LUNGS: Breath sounds clear to auscultation bilaterally and equal. No wheezes rales or rhonchi. HEART: Regular rate and rhythm, no chest wall tenderness ABDOMEN: Soft, nontender, normoactive bowel sounds. No guarding, no rebound. No masses appreciated. Bright red blood on rectal exam EXTREMITIES: Normal range of motion, no pitting or edema. No cyanosis. NEUROLOGICAL: Cranial nerves grossly intact. Normal speech, normal gait. Normal sensory and motor exams. PSYCH: Normal mood, normal affect. SKIN: Warm, Dry, normal turgor, no rashes or lesions noted. Course - Re-evaluation Re-evalutation: 01/03/18 18:37 Hemoglobin decreased from 10.2 to 9 from December 28 to today. On anticoagulants. Discussed with hospitalist for admission. Pepcid ordered. - Vital Signs Vital signs: Temp Pulse Resp BP Pulse Ox 98.6 F 68 18 135/86 H 97 01/03/18 16:49 01/03/18 16:49 01/03/18 16:49 01/03/18 16:49 01/03/18 16:49 - Laboratory Result Diagrams: 01/03/18 17:42 01/03/18 17:42 Laboratory results interpreted by me: 01/03/18 01/03/18 17:42 17:42 RBC 2.82 L Hgb 9.0 L Hct 26.3 L Seg Neutrophils % 80.7 H Lymphocytes % 12.0 L Sodium 145.2 H Chloride 111 H Est GFR (Non-Af Amer) 53 L Total Protein 5.9 L Albumin 3.3 L Discharge - Discharge Clinical Impression: Rectal bleeding, Acute blood loss anemia Disposition: ADMITTED INPATIENT Admitting Provider: Hospitalist Unit Admitted: Medical Floor
[2018-01-03 18:51] LABS: INTERNATIONAL RATION (INR) 1.79; PROTHROMBIN TIME 21.7 SEC (11.4-15.4)
[2018-01-03 18:52] LABS: PARTIAL THROMBOPLASTIN TIME 31.2 SEC (23.5-35.8)
[2018-01-03] MEDS ORDERED: NORMAL SALINE 1000 ML 1,000 ML IV PRN (21:39)
[2018-01-03] MEDS ORDERED: ONDANSETRON HCL INJ/PF 4 MG/2 ML SDV IV PRN (21:46)
[2018-01-03] MEDS ORDERED: DEXTROSE 40% GEL 15 GM TUBE PO PRN ×2 (21:46)
[2018-01-03] MEDS ORDERED: ACETAMINOPHEN 325 MG TABLET PO PRN (21:46)
[2018-01-03] MEDS ORDERED: DEXTROSE 50%-WATER 25 GM/50 ML DISP.SYRIN IV PRN ×2 (21:46)
[2018-01-03] MEDS ORDERED: GLUCAGON,HUMAN RECOMB 1 MG INJ SUBCUT PRN (21:46)
[2018-01-03] MEDS: METOPROLOL SUCCINATE 50 MG TAB.SR.24H PO SCH (22:28)
[2018-01-03] MEDS: ZOLPIDEM TARTRATE 5 MG TABLET PO SCH (22:34)
--- NOTE | 2018-01-03 22:42 | PDOC H&P ---
History of Present Illness Admission Date/PCP: 01/03/18 19:17 KAREEN MCGOVERN MD Patient complains of: Rectal bleeding History of Present Illness: BOB ROD is a 72 year old female with history of multiple medical problems that will be mentioned below who was recently admitted for GI bleeding and discharged on Sunday. She was advised to stop her Coumadin. She later saw her primary care physician on Sunday who started her on Xarelto for her chronic atrial fibrillation. Today she presented to the emergency room with acute onset of bright red bleeding per rectum. She admits to mild generalized weakness and denies any melena. No chest pain or dyspnea or palpitations or cough or wheezing or hemoptysis. No nausea or vomiting or hematemesis. No other bleeding diathesis. She denies any fever or chills. No abdominal pain. She admits to mild dizziness. Upon presentation to the emergency room blood pressure was 135/86 and vital signs were within normal otherwise. Her labs were remarkable for anemia with hemoglobin of 9 and hematocrit of 26.3. Hemoglobin has come down from 10.2 on 12/28/17. She will be admitted to a medically monitored bed for further evaluation and management. Past Medical History Cardiac Medical History: Reports: Atrial Fibrillation, Hyperlipidema, Hypertension, Other - Sick sinus syndrome status post pacemaker placement Pulmonary Medical History: Reports: Sleep Apnea Neurological Medical History: Denies: Seizures GI Medical History: Reports: Diverticulitis, Gastroesophageal Reflux Disease Past Surgical History Past Surgical History: Reports: Cholecystectomy, Hysterectomy, Orthopedic Surgery - L wrist, Pacemaker - Recently placed in November 2017 Social History Smoking Status: Never Smoker Frequency of Alcohol Use: None Hx Recreational Drug Use: No Drugs: None Hx Prescription Drug Abuse: No Family History Family History: Malignancy - In her mother, Other - Emphysema in her father Parental Family History Reviewed: Yes Children Family History Reviewed: Yes Sibling(s) Family History Reviewed.: Yes Medication/Allergy Home Medications: Amlodipine Besylate [Norvasc 5 mg Tablet] 5 mg PO DAILY 01/03/18 Irbesartan/Hydrochlorothiazide [Avalide 300-12.5 mg Tablet] 1 tab PO DAILY 01/03 Linaclotide [Linzess] 290 mg PO DAILY 01/03/18 Metoprolol Succinate [Toprol Xl 50 mg Tab.sr] 150 mg PO Q12 01/03/18 Omeprazole 40 mg PO DAILY 01/03/18 Rivaroxaban [Xarelto] 20 mg PO DAILY 01/03/18 Allergies/Adverse Reactions: codeine [Codeine] Allergy (Verified 01/03/18 16:46) Penicillins Allergy (Verified 01/03/18 16:46) Review of Systems Review of Systems: As per history of present illness. All pertinent systems were reviewed above. Constitutional, HEENT, cardiovascular, respiratory, GI, , musculoskeletal, neuro, psychiatric, endocrine, integumentary and hematologic systems were reviewed and are otherwise negative/unremarkable except for positive findings mentioned above in the HPI. Physical Exam Vital Signs: Temp Pulse Resp BP Pulse Ox 97.9 F 92 17 138/63 H 100 01/03/18 19:05 01/03/18 20:10 01/03/18 20:10 01/03/18 20:10 01/03/18 20:10 Exam: Generally: Very pleasant elderly female in no acute distress Vital signs-as listed Head - atraumatic, normocephalic. Pupils - equal, round and reactive to light and accommodation. Extraocular movements are intact. No scleral icterus. Oropharynx - moist mucous membranes and tongue. No pharyngeal erythema or exudate. Neck - supple. No JVD. Carotid pulses 2+ bilaterally. No carotid bruits. No palpable thyromegaly or lymphadenopathy. Cardiovascular - regular rate and rhythm. Normal S1 and S2. No murmurs, gallops or rubs. Lungs - clear to auscultation bilaterally. Abdomen - soft and nontender. Positive bowel sounds. No palpable organomegaly or masses. Extremities - no pitting edema, clubbing or cyanosis. Neuro - grossly non-focal. Skin - no rashes. Breast, pelvic and rectal - deferred Assessment & Plan - Diagnosis (1) Rectal bleeding Is this a current diagnosis for this admission?: Yes Plan: The patient will be admitted to a medical monitored bed. Will follow her CBC. We will stop her Xarelto. We will keep her n.p.o. after midnight. She will be hydrated with IV normal saline. A surgery consultation will be obtained by Dr. Villagomez in a.m. (2) Coagulopathy Is this a current diagnosis for this admission?: Yes Plan: This is likely related to her Xarelto and contributing to her GI bleeding. We will stop her Xarelto. (3) Acute blood loss anemia Is this a current diagnosis for this admission?: Yes Plan: We will monitor her CBC. At this time she does not require transfusion. (4) Hypertension Qualifiers: Hypertension type: essential hypertension Qualified Code(s): I10 - Essential (primary) hypertension Is this a current diagnosis for this admission?: Yes Plan: We will continue her Toprol-XL, amlodipine and Avalide while monitoring her blood pressure. (5) GERD (gastroesophageal reflux disease) Is this a current diagnosis for this admission?: Yes Plan: PPI therapy will be resumed. (6) Atrial fibrillation Is this a current diagnosis for this admission?: Yes Plan: We will continue her Toprol-XL and hold off her Xarelto. We will obtain a cardiology consultation in a.m. for further antiarrhythmic management as she had GI bleeding with Coumadin and Xarelto. (7) DVT prophylaxis Is this a current diagnosis for this admission?: Yes Plan: Medical DVT prophylaxis is currently contraindicated due to GI bleeding. We will place her on SCDs. - Plan Summary Plan Summary: The plan of care was discussed in details with the patient. I answered all questions. The patient agreed to proceed with the above-mentioned plan. The patient is presumably full code. This note was created by [employer] software and may contain typo errors that may have not been proofread.
[2018-01-03 23:05] LABS: MEAN CORPUSCULAR HGB CONC 34.7 g/dL (32.0-36.0); MEAN CORPUSCULAR VOLUME 92 fl (80-97); PLATELET COUNT 235 10^3/uL (150-450); RED BLOOD COUNT 2.45 10^6/uL (3.72-5.28); RED CELL DISTRIBUTION WIDTH 13.7 % (11.5-14.0); WHITE BLOOD COUNT 6.8 10^3/uL (4.0-10.5)
[2018-01-03 23:10] LABS: HEMATOCRIT 22.7 % (36.0-47.0); HEMOGLOBIN 7.9 g/dL (12.0-15.5)
[2018-01-04 08:36] LABS: ABSOLUTE EOSINOPHILS # (AUTO) 0.1 10^3/uL (0.0-0.6); ABSOLUTE LYMPHOCYTES (AUTO) 0.8 10^3/uL (0.5-4.7); ABSOLUTE MONOCYTES (AUTO) 0.4 10^3/uL (0.1-1.4); ABSOLUTE NEUT (AUTO) 4.2 10^3/uL (1.7-8.2); BASOPHILS % (AUTO) 0.5 % (0-2); EOSINOPHILS % (AUTO) 1.3 % (0-6); HEMATOCRIT 25.2 % (36.0-47.0); HEMOGLOBIN 8.7 g/dL (12.0-15.5); LYMPHOCYTES % (AUTO) 13.8 % (13-45); MEAN CORPUSCULAR HEMOGLOBIN 31.4 pg (27.0-33.4); MEAN CORPUSCULAR HGB CONC 34.4 g/dL (32.0-36.0); MEAN CORPUSCULAR VOLUME 91 fl (80-97); MONOCYTES % (AUTO) 7.8 % (3-13); PLATELET COUNT 228 10^3/uL (150-450); RED BLOOD COUNT 2.76 10^6/uL (3.72-5.28); RED CELL DISTRIBUTION WIDTH 14.5 % (11.5-14.0); SEGMENTED NEUTROPHILS % (AUTO) 76.6 % (42-78); TOTAL CELLS COUNTED % (AUTO) 100 %; WHITE BLOOD COUNT 5.5 10^3/uL (4.0-10.5)
[2018-01-04 09:16] LABS: ANION GAP 10 (5-19); BLOOD UREA NITROGEN 17 mg/dL (7-20); CALCIUM 8.2 mg/dL (8.4-10.2); CARBON DIOXIDE 22 mmol/L (22-30); CHLORIDE 114 mmol/L (98-107); GLUCOSE 86 mg/dL (75-110); POTASSIUM 3.6 mmol/L (3.6-5.0); SODIUM 146.2 mmol/L (137-145)
[2018-01-04] MEDS ORDERED: (PENDING PHARMACY ID) (Linaclotide [Linzess] 290 MG) PO SCH (10:00)
[2018-01-04] MEDS: LANSOPRAZOLE 30 MG TAB.RAP.DR PO SCH (10:55)
[2018-01-04] MEDS: DOCUSATE SODIUM 100 MG CAPSULE PO SCH (10:55)
[2018-01-04] MEDS: METOPROLOL SUCCINATE 50 MG TAB.SR.24H PO SCH ×2 (10:56→21:04)
[2018-01-04] MEDS: HYDROCHLOROTHIAZIDE 12.5 MG TABLET PO SCH (11:01)
[2018-01-04] MEDS: AMLODIPINE BESYLATE 5 MG TABLET PO SCH (11:01)
[2018-01-04] MEDS: LOSARTAN POTASSIUM 50 MG TABLET PO SCH (11:01)
[2018-01-04 15:03] LABS: HEMATOCRIT 25.8 % (36.0-47.0); HEMOGLOBIN 8.8 g/dL (12.0-15.5); MEAN CORPUSCULAR HEMOGLOBIN 31.2 pg (27.0-33.4); MEAN CORPUSCULAR HGB CONC 33.9 g/dL (32.0-36.0); MEAN CORPUSCULAR VOLUME 92 fl (80-97); PLATELET COUNT 237 10^3/uL (150-450); RED CELL DISTRIBUTION WIDTH 14.3 % (11.5-14.0); WHITE BLOOD COUNT 6.2 10^3/uL (4.0-10.5)
--- NOTE | 2018-01-04 21:18 | PDOC PROGRESS REPORT ---
Subjective Progress Note for:: 01/04/18 Subjective:: The patient is a 72-year-old female with past medical history of atrial fibrillation, hyperlipidemia, hypertension, sick sinus syndrome status post pacemaker placement, sleep apnea, diverticulitis, GERD who was admitted on as a readmit following being discharged on Sunday. The patient was previously admitted for lower GI bleed while on Coumadin. She did have a colonoscopy during that admission. Her Coumadin was held with resolution of her active bleeding. She was discharged to home and at her follow-up appointment her primary care provider placed her on Xarelto. Approximately 3 days later, the patient represented to emergency department with antione red blood per rectum. The patient is seen on morning rounds. She reports decrease in the amount of blood noted in her stools. She reports that she noted slight streaking of blood mixed with her stools rather than copious amount of blood in commode. She denies fever, chills, chest pain, palpitations, dyspnea, orthopnea, abdominal pain, nausea vomiting diarrhea. We discussed the risks and benefits of chronic anticoagulation given her recurrent lower GI bleed versus risks of stroke with her history of chronic atrial fibrillation. All questions were answered to her satisfaction and she has no other concerns today. No concerns per nursing. Reason For Visit: GI BLEEDING COAGULOPATHY Physical Exam Vital Signs: Temp Pulse Resp BP Pulse Ox 97.7 F 82 14 118/58 L 96 01/04/18 20:16 01/04/18 20:16 01/04/18 20:16 01/04/18 20:16 01/04/18 20:16 Intake & Output 01/03/18 01/04/18 01/05/18 06:59 06:59 06:59 Intake Total 830 1030 Balance 830 1030 Weight 116.7 kg General appearance: PRESENT: no acute distress, cooperative - Pleasant, obese, well-developed, well-nourished Head exam: PRESENT: atraumatic, normocephalic Eye exam: PRESENT: conjunctiva pink, EOMI, PERRLA. ABSENT: scleral icterus Ear exam: PRESENT: normal external ear exam Mouth exam: PRESENT: moist, tongue midline Neck exam: ABSENT: carotid bruit, JVD, lymphadenopathy, thyromegaly Respiratory exam: PRESENT: clear to auscultation aristides, symmetrical, unlabored. ABSENT: rales, rhonchi, wheezes Cardiovascular exam: PRESENT: irregular rhythm, +S1, +S2. ABSENT: diastolic murmur, rubs, systolic murmur Pulses: PRESENT: normal dorsalis pedis pul Vascular exam: PRESENT: normal capillary refill GI/Abdominal exam: PRESENT: normal bowel sounds, soft. ABSENT: distended, guarding, mass, organolmegaly, rebound, tenderness Rectal exam: PRESENT: bloody stool - Decreased in amount/frequency Extremities exam: PRESENT: full ROM. ABSENT: calf tenderness, clubbing, pedal edema Neurological exam: PRESENT: alert, awake, oriented to person, oriented to place , oriented to time, oriented to situation, CN II-XII grossly intact. ABSENT: motor sensory deficit Psychiatric exam: PRESENT: appropriate affect, normal mood. ABSENT: homicidal ideation, suicidal ideation Skin exam: PRESENT: dry, intact, pallor, warm. ABSENT: cyanosis, rash Results Laboratory Results: 01/04/18 14:44 01/04/18 08:15 01/03/18 01/04/18 01/04/18 22:57 08:15 08:15 WBC 6.8 5.5 RBC 2.45 L 2.76 L Hgb 7.9 L 8.7 L Hct 22.7 L 25.2 L MCV 92 91 MCH 32.0 31.4 MCHC 34.7 34.4 RDW 13.7 14.5 H Plt Count 235 228 Seg Neutrophils % 76.6 Lymphocytes % 13.8 Monocytes % 7.8 Eosinophils % 1.3 Basophils % 0.5 Absolute Neutrophils 4.2 Absolute Lymphocytes 0.8 Absolute Monocytes 0.4 Absolute Eosinophils 0.1 Absolute Basophils 0.0 Sodium 146.2 H Potassium 3.6 Chloride 114 H Carbon Dioxide 22 Anion Gap 10 BUN 17 Creatinine 0.83 Est GFR ( Amer) > 60 Est GFR (Non-Af Amer) > 60 Glucose 86 Calcium 8.2 L 01/04/18 14:44 WBC 6.2 RBC 2.80 L Hgb 8.8 L Hct 25.8 L MCV 92 MCH 31.2 MCHC 33.9 RDW 14.3 H Plt Count 237 Seg Neutrophils % Lymphocytes % Monocytes % Eosinophils % Basophils % Absolute Neutrophils Absolute Lymphocytes Absolute Monocytes Absolute Eosinophils Absolute Basophils Sodium Potassium Chloride Carbon Dioxide Anion Gap BUN Creatinine Est GFR ( Amer) Est GFR (Non-Af Amer) Glucose Calcium Assessment & Plan - Diagnosis (1) Rectal bleeding Is this a current diagnosis for this admission?: Yes Plan: The patient was admitted to the medical floor on continuous cardiac telemetry. Her Xarelto was held. Patient reports decreased amount of bleeding noted in stools this morning. Continue gentle IV fluid rehydration. We will advance her diet and continue to monitor stools. We will monitor serial CBCs. It appears that her hemoglobin has stabilized; she continues to demonstrate stable hemoglobin and reduction and rectal bleeding, anticipate that she may be discharged to home tomorrow with outpatient follow-up. (2) Acute blood loss anemia Is this a current diagnosis for this admission?: Yes Plan: Secondary to lower GI bleed Hemoglobin appears to have stabilized; 9.0--> 7.9--> 8.7--> 8.8 We will continue to monitor serial CBCs. (3) GERD (gastroesophageal reflux disease) Is this a current diagnosis for this admission?: Yes Plan: Continue PPI therapy (4) Hypertension Qualifiers: Hypertension type: essential hypertension Qualified Code(s): I10 - Essential (primary) hypertension Is this a current diagnosis for this admission?: Yes Plan: The patient is normotensive at present. Her home medication regiment has been continued. (5) Atrial fibrillation Qualifiers: Atrial fibrillation type: chronic Qualified Code(s): I48.2 - Chronic atrial fibrillation Is this a current diagnosis for this admission?: Yes Plan: Her home medication regiment for rate control has been continued. Xarelto is held secondary to repeat lower GI bleed. Patient previously had a lower GI bleed while on Coumadin. Cardiology has been consulted; appreciate their evaluation recommendations. (6) Coagulopathy Is this a current diagnosis for this admission?: Yes Plan: Secondary to Xarelto; this subsequently has been held. - Time Time Spent with patient: 25-34 minutes Medications reviewed and adjusted accordingly: Yes Anticipated discharge: Home Within: within 24 hours
--- NOTE | 2018-01-04 22:02 | EKG REPORT ---
SEVERITY:- ABNORMAL ECG - PROBABLE AFUB WITH INTERMITTENT VENTRICULAR-PACED COMPLEXES, REC REPEAT EKG FIRST DEGREE AV BLOCK PROBABLE LEFT ATRIAL ABNORMALITY LEFT VENTRICULAR HYPERTROPHY BORDERLINE T ABNORMALITIES, INFERIOR LEADS : Confirmed by: Carson Hernandez 04-Jan-2018 22:02:30
[2018-01-04] MEDS: ZOLPIDEM TARTRATE 5 MG TABLET PO SCH (23:10)
[2018-01-05 07:22] LABS: ABSOLUTE BASOPHILS # (AUTO) 0.1 10^3/uL (0.0-0.2); ABSOLUTE EOSINOPHILS # (AUTO) 0.2 10^3/uL (0.0-0.6); ABSOLUTE LYMPHOCYTES (AUTO) 0.9 10^3/uL (0.5-4.7); ABSOLUTE MONOCYTES (AUTO) 0.5 10^3/uL (0.1-1.4); ABSOLUTE NEUT (AUTO) 3.4 10^3/uL (1.7-8.2); BASOPHILS % (AUTO) 1.2 % (0-2); EOSINOPHILS % (AUTO) 3.3 % (0-6); HEMATOCRIT 25.2 % (36.0-47.0); HEMOGLOBIN 8.7 g/dL (12.0-15.5); LYMPHOCYTES % (AUTO) 18.2 % (13-45); MEAN CORPUSCULAR HEMOGLOBIN 31.7 pg (27.0-33.4); MEAN CORPUSCULAR HGB CONC 34.5 g/dL (32.0-36.0); MEAN CORPUSCULAR VOLUME 92 fl (80-97); MONOCYTES % (AUTO) 9.2 % (3-13); PLATELET COUNT 225 10^3/uL (150-450); RED BLOOD COUNT 2.74 10^6/uL (3.72-5.28); RED CELL DISTRIBUTION WIDTH 14.9 % (11.5-14.0); SEGMENTED NEUTROPHILS % (AUTO) 68.1 % (42-78); TOTAL CELLS COUNTED % (AUTO) 100 %; WHITE BLOOD COUNT 4.9 10^3/uL (4.0-10.5)
[2018-01-05 07:36] LABS: INTERNATIONAL RATION (INR) 1.12; PROTHROMBIN TIME 14.9 SEC (11.4-15.4)
[2018-01-05 07:45] LABS: ANION GAP 9 (5-19); BLOOD UREA NITROGEN 15 mg/dL (7-20); CARBON DIOXIDE 24 mmol/L (22-30); CHLORIDE 112 mmol/L (98-107); GLUCOSE 92 mg/dL (75-110); POTASSIUM 3.4 mmol/L (3.6-5.0); SODIUM 144.8 mmol/L (137-145)
[2018-01-05] MEDS: LANSOPRAZOLE 30 MG TAB.RAP.DR PO SCH (10:34)
[2018-01-05] MEDS: DOCUSATE SODIUM 100 MG CAPSULE PO SCH (10:36)
[2018-01-05] MEDS: METOPROLOL SUCCINATE 50 MG TAB.SR.24H PO SCH (10:36)
[2018-01-05] MEDS: AMLODIPINE BESYLATE 5 MG TABLET PO SCH (10:37)
[2018-01-05] MEDS: LOSARTAN POTASSIUM 50 MG TABLET PO SCH (10:37)
[2018-01-05] MEDS: HYDROCHLOROTHIAZIDE 12.5 MG TABLET PO SCH (10:37)
[2018-01-05 12:19] VITALS: BP 139/68
--- NOTE | 2018-01-05 14:24 | PDOC CONSULTATION ---
Consultation Consult Date: 01/04/18 Attending physician:: BILLY RENEE Consult reason:: Atrial fibrillation, GI bleed History of Present Illness Admission Date/PCP: 01/03/18 19:17 KAREEN MCGOVERN MD Patient complains of: Dyspnea and fatigue. Patient also has GI bleed History of Present Illness: BOB ROD is a 72 year old female with history of multiple medical problems that will be mentioned below who was recently admitted for GI bleeding and discharged on Sunday. She was advised to stop her Coumadin. She later saw her primary care physician on Sunday who started her on Xarelto for her chronic atrial fibrillation. Today she presented to the emergency room with acute onset of bright red bleeding per rectum. She admits to mild generalized weakness and denies any melena. No chest pain or dyspnea or palpitations or cough or wheezing or hemoptysis. No nausea or vomiting or hematemesis. No other bleeding diathesis. She denies any fever or chills. No abdominal pain. She admits to mild dizziness. Upon presentation to the emergency room blood pressure was 135/86 and vital signs were within normal otherwise. Her labs were remarkable for anemia with hemoglobin of 9 and hematocrit of 26.3. Hemoglobin has come down from 10.2 on 12/28/17. This history was obtained and reviewed. Patient has noted some dyspnea on exertion, fatigue and tiredness. Patient does have history of chronic atrial fibrillation. Patient denies any prior history of strokes or mini strokes. Past Medical History Cardiac Medical History: Reports: Atrial Fibrillation, Hyperlipidema, Hypertension, Other - Sick sinus syndrome status post pacemaker placement Pulmonary Medical History: Reports: Sleep Apnea Neurological Medical History: Denies: Seizures GI Medical History: Reports: Diverticulitis, Gastroesophageal Reflux Disease Past Surgical History Past Surgical History: Reports: Cholecystectomy, Hysterectomy, Orthopedic Surgery - L wrist, Pacemaker - Recently placed in November 2017 Social History Information Source: Patient Smoking Status: Never Smoker Frequency of Alcohol Use: None Hx Recreational Drug Use: No Drugs: None Hx Prescription Drug Abuse: No - Advance Directive Resuscitation Status: Full Code Surrogate healthcare decision maker:: Patient's is the surrogate decision-maker Family History Family History: Malignancy - In her mother, Other - Emphysema in her father Parental Family History Reviewed: Yes Children Family History Reviewed: Yes Sibling(s) Family History Reviewed.: Yes Medication/Allergy Home Medications: Amlodipine Besylate [Norvasc 5 mg Tablet] 5 mg PO DAILY 01/03/18 Irbesartan/Hydrochlorothiazide [Avalide 300-12.5 mg Tablet] 1 tab PO DAILY 01/03 Linaclotide [Linzess] 290 mg PO DAILY 01/03/18 Metoprolol Succinate [Toprol Xl 50 mg Tab.sr] 150 mg PO Q12 01/03/18 Omeprazole 40 mg PO DAILY 01/03/18 Acetaminophen [Tylenol 325 mg Tablet] 650 mg PO Q4HP PRN tablet 01/05/18 Docusate Sodium [Colace 100 mg Capsule] 100 mg PO DAILY #30 capsule 01/05/18 Allergies/Adverse Reactions: codeine [Codeine] Allergy (Verified 01/03/18 16:46) Penicillins Allergy (Verified 01/03/18 16:46) Review of Systems Review of Systems: Please see history of present illness and past medical history as wall. Constitutional: No fever or chills reported. Head : No recent chronic headaches, recent head injury. Eyes: No recent eye pain, diplopia, redness, discharge, acute visual changes. Ears: No recent chronic ear pain, acute hearing loss, ear discharge. Oral cavity: No recent ulcerations, bleeding, oral cavity discomfort. Neck: No recent acute neck pain reported. Hematologic: No recent easy bruising or bleeding. Lymphatic: No recent lymph node enlargement reported. Cardiovascular system review: See history of present illness. Respiratory system review: No hemoptysis or blood clots in the lungs reported. Mild Shortness of breath on exertion Gastrointestinal system review: GI bleed as noted in HPI. Patient denied any acute or chronic abdominal pain. Genitourinary system review: No recent acute or chronic hematuria, flank pain, UTI etc. reported. Skin system review: Negative for any recent abnormal bruising, no rash, no pruritus reported. Neurologic: No prior history of strokes, mini strokes, seizure disorder. Psychologic: No history of major psychosis or major depression reported. Musculoskeletal: Minor aches and pains reported. No acute joint swelling reported. Endocrine: No recent polyuria, polydipsia, recent heat or cold intolerance. Physical Exam Vital Signs: Temp Pulse Resp BP Pulse Ox 97.7 F 77 16 123/48 L 99 01/04/18 16:26 01/04/18 16:26 01/04/18 16:26 01/04/18 16:26 01/04/18 16:26 Intake & Output 01/03/18 01/04/18 01/05/18 06:59 06:59 06:59 Intake Total 830 1030 Balance 830 1030 Weight 116.7 kg Exam: GENERAL: well-nourished and in no acute distress. Alert and oriented x3 HEAD: Atraumatic, normocephalic. EYES: Pupils equal round and reactive to light, extraocular movements intact, sclera anicteric, conjunctiva are normal. ENT: TMs normal, nares patent, oropharynx clear without exudates. Moist mucous membranes. No oral ulcerations or bleeding gums noted NECK: supple without lymphadenopathy. Trachea is central. No cervical or axillary lymphadenopathy noted. Carotids are 2+, JVD WNL LUNGS: Respiration seems nonlabored, no significant accessory muscle action noted. Breath sounds clear to auscultation bilaterally and equal noted. No wheezes rales or rhonchi noted. No significant dullness noted on percussion. CHEST: Palpation of the chest wall shows no significant chest wall tenderness. 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 ABDOMEN: Soft, no significant tenderness appreciated, normoactive bowel sounds. No guarding, no rebound. No rigidity noted . No masses appreciated. EXTREMITIES: Pedal pulses are 1-2+, no calf tenderness noted. No clubbing or cyanosis. negative pedal edema noted NEUROLOGICAL: Focused neurological exam showed no significant neurologic deficit. Normal speech, no focal weakness appreciated. PSYCH: Normal mood, normal affect. Judgment and insight within normal limits. SKIN: No significant ecchymosis, skin is noted to be warm. MUSCULOSKELETAL EXAM: No significant acute joint swelling noted. Results Laboratory Results: 01/04/18 14:44 01/04/18 08:15 01/03/18 01/04/18 01/04/18 22:57 08:15 08:15 WBC 6.8 5.5 RBC 2.45 L 2.76 L Hgb 7.9 L 8.7 L Hct 22.7 L 25.2 L MCV 92 91 MCH 32.0 31.4 MCHC 34.7 34.4 RDW 13.7 14.5 H Plt Count 235 228 Seg Neutrophils % 76.6 Lymphocytes % 13.8 Monocytes % 7.8 Eosinophils % 1.3 Basophils % 0.5 Absolute Neutrophils 4.2 Absolute Lymphocytes 0.8 Absolute Monocytes 0.4 Absolute Eosinophils 0.1 Absolute Basophils 0.0 Sodium 146.2 H Potassium 3.6 Chloride 114 H Carbon Dioxide 22 Anion Gap 10 BUN 17 Creatinine 0.83 Est GFR ( Amer) > 60 Est GFR (Non-Af Amer) > 60 Glucose 86 Calcium 8.2 L 01/04/18 14:44 WBC 6.2 RBC 2.80 L Hgb 8.8 L Hct 25.8 L MCV 92 MCH 31.2 MCHC 33.9 RDW 14.3 H Plt Count 237 Seg Neutrophils % Lymphocytes % Monocytes % Eosinophils % Basophils % Absolute Neutrophils Absolute Lymphocytes Absolute Monocytes Absolute Eosinophils Absolute Basophils Sodium Potassium Chloride Carbon Dioxide Anion Gap BUN Creatinine Est GFR ( Amer) Est GFR (Non-Af Amer) Glucose Calcium EKG Comments: Probable underlying atrial fibrillation with intermittent ventricular paced beats Assessment & Plan - Diagnosis (1) Atrial fibrillation Qualifiers: Atrial fibrillation type: chronic Qualified Code(s): I48.2 - Chronic atrial fibrillation Is this a current diagnosis for this admission?: Yes (2) Acute blood loss anemia Is this a current diagnosis for this admission?: Yes (3) Diverticulosis of colon with hemorrhage Is this a current diagnosis for this admission?: Yes (4) GERD (gastroesophageal reflux disease) Qualifiers: Esophagitis presence: esophagitis presence not specified Qualified Code(s) : K21.9 - Gastro-esophageal reflux disease without esophagitis Is this a current diagnosis for this admission?: Yes (5) Hypertension Qualifiers: Hypertension type: essential hypertension Qualified Code(s): I10 - Essential (primary) hypertension Is this a current diagnosis for this admission?: Yes - Notes Notes: Atrial fibrillation: Patient claims this is chronic. Patient has underlying ventricular pacemaker. At this point chronic anticoagulation is on hold. This is because of acute blood loss anemia and recent GI bleed. Currently hemoglobin is being monitored. Rate seems well controlled. Acute blood loss anemia: Patient received total of 1 unit of blood transfusion. Monitor for any blood loss and transfuse as needed to maintain hemodynamic stability. Diverticulosis with GI bleed: May consider surgical evaluation if needed. Hypertension: Blood pressure under reasonable control. Continue with current antihypertensives. Status post pacemaker placement: Patient seems to be doing well. It seems patient also tells me that she had recent cardiac evaluations including stress test and a 2D echocardiogram which she says were satisfactory. Will try obtain those records if needed. - Time Time Spent: 30 to 50 Minutes - CODE STATUS was discussed, patient remains full code. Surrogate decision-maker unchanged. Multiple medical problems were addressed. More than 50% of the time spent coordinating care, discussing management plans with involved caregivers. Management plans discussed with involved personnels. Medical decision making was of moderate to high complexity , patient's has multiple comorbidities. Medications reviewed and adjusted accordingly: Yes
--- NOTE | 2018-01-05 14:29 | PDOC PROGRESS REPORT ---
Subjective Progress Note for:: 01/05/18 Subjective:: Patient seems to be doing better. Hemoglobin is stable and there is no further bleeding per patient. Pt is denying any chest arm or neck discomfort. Patient denying any PND, orthopnea. Patient denied any sustained palpitations, dizziness, syncope, near syncope. Patient denying any fever chills. Patient denying any other significant discomfort. Patient is maintaining sinus rhythm. Review of systems: Rest review of systems negative. Medications: Medications have been reviewed. Reason For Visit: GI BLEEDING COAGULOPATHY Physical Exam Vital Signs: Temp Pulse Resp BP Pulse Ox 98.2 F 71 18 139/68 H 99 01/05/18 12:18 01/05/18 12:18 01/05/18 12:18 01/05/18 12:18 01/05/18 12:18 Intake & Output 01/04/18 01/05/18 01/06/18 06:59 06:59 06:59 Intake Total 830 1414 Balance 830 1414 Weight 116.7 kg 116.8 kg Exam: GENERAL: well-nourished and in no acute distress. Alert and oriented x3 HEAD: Atraumatic, normocephalic. EYES: Pupils equal round and reactive to light, extraocular movements intact, sclera anicteric, conjunctiva are normal. ENT: TMs normal, nares patent, oropharynx clear without exudates. Moist mucous membranes. No oral ulcerations or bleeding gums noted NECK: supple without lymphadenopathy. Trachea is central. No cervical or axillary lymphadenopathy noted. Carotids are 2+, JVD WNL LUNGS: Respiration seems nonlabored, no significant accessory muscle action noted. Breath sounds clear to auscultation bilaterally and equal noted. No wheezes rales or rhonchi noted. No significant dullness noted on percussion. CHEST: Palpation of the chest wall shows no significant chest wall tenderness. 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 ABDOMEN: Soft, no significant tenderness appreciated, normoactive bowel sounds. No guarding, no rebound. No rigidity noted . No masses appreciated. EXTREMITIES: Pedal pulses are 1-2+, no calf tenderness noted. No clubbing or cyanosis. negative pedal edema noted NEUROLOGICAL: Focused neurological exam showed no significant neurologic deficit. Normal speech, no focal weakness appreciated. PSYCH: Normal mood, normal affect. Judgment and insight within normal limits. SKIN: No significant ecchymosis, skin is noted to be warm. MUSCULOSKELETAL EXAM: No significant acute joint swelling noted. Results Laboratory Results: 01/05/18 06:35 01/05/18 06:35 01/04/18 01/05/18 01/05/18 14:44 06:35 06:35 WBC 6.2 4.9 RBC 2.80 L 2.74 L Hgb 8.8 L 8.7 L Hct 25.8 L 25.2 L MCV 92 92 MCH 31.2 31.7 MCHC 33.9 34.5 RDW 14.3 H 14.9 H Plt Count 237 225 Seg Neutrophils % 68.1 Lymphocytes % 18.2 Monocytes % 9.2 Eosinophils % 3.3 Basophils % 1.2 Absolute Neutrophils 3.4 Absolute Lymphocytes 0.9 Absolute Monocytes 0.5 Absolute Eosinophils 0.2 Absolute Basophils 0.1 Sodium 144.8 Potassium 3.4 L Chloride 112 H Carbon Dioxide 24 Anion Gap 9 BUN 15 Creatinine 0.98 Est GFR ( Amer) > 60 Est GFR (Non-Af Amer) 56 L Glucose 92 Calcium 8.0 L EKG Comments: Telemetry strips reviewed shows intermittent ventricular paced rhythm. No other sustained tachycardia or bradycardia arrhythmias noted Assessment & Plan - Diagnosis (1) Atrial fibrillation Qualifiers: Atrial fibrillation type: chronic Qualified Code(s): I48.2 - Chronic atrial fibrillation Is this a current diagnosis for this admission?: Yes (2) Acute blood loss anemia Is this a current diagnosis for this admission?: Yes (3) Diverticulosis of colon with hemorrhage Is this a current diagnosis for this admission?: Yes (4) GERD (gastroesophageal reflux disease) Qualifiers: Esophagitis presence: esophagitis presence not specified Qualified Code(s) : K21.9 - Gastro-esophageal reflux disease without esophagitis Is this a current diagnosis for this admission?: Yes (5) Hypertension Qualifiers: Hypertension type: essential hypertension Qualified Code(s): I10 - Essential (primary) hypertension Is this a current diagnosis for this admission?: Yes - Notes Notes: Atrial fibrillation: Patient claims this is chronic. Patient has underlying ventricular pacemaker. At this point chronic anticoagulation is on hold. This is because of acute blood loss anemia and recent GI bleed. Currently hemoglobin is being monitored. Rate seems well controlled. 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 This is in view of moderate bleed in need for transfusion. Risk benefits may need to be assessed. Acute blood loss anemia: Patient received total of 1 unit of blood transfusion. Based on evaluation, bleeding probably stopped. Diverticulosis with GI bleed: May consider surgical evaluation if needed. Gastroesophageal reflux disease: Recommend prophylaxis. Hypertension: Blood pressure under reasonable control. Continue with current antihypertensives. Status post pacemaker placement: Patient seems to be doing well. It seems patient also tells me that she had recent cardiac evaluations including stress test and a 2D echocardiogram which she says were satisfactory. Will try obtain those records if needed. - Time Time with patient: 15-25 minutes - CODE STATUS was discussed, patient remains full code. Surrogate decision-maker unchanged. Multiple medical problems were addressed. More than 50% of the time spent coordinating care, discussing management plans with involved caregivers. Management plans discussed with involved personnels. Medical decision making was of moderate to high complexity , patient's has multiple comorbidities. Medications reviewed and adjusted accordingly: Yes
--- NOTE | 2018-01-08 11:21 | PDOC DISCHARGE SUMMARY ---
General - Admit/Disc Date/PCP Admission Date/Primary Care Provider: 01/03/18 19:17 KAREEN MCGOVERN MD Discharge Date: 01/05/18 - Discharge Diagnosis (1) Rectal bleeding Is this a current diagnosis for this admission?: Yes (2) Acute blood loss anemia Is this a current diagnosis for this admission?: Yes (3) GERD (gastroesophageal reflux disease) Is this a current diagnosis for this admission?: Yes (4) Hypertension Is this a current diagnosis for this admission?: Yes (5) Atrial fibrillation Is this a current diagnosis for this admission?: Yes (6) Coagulopathy Is this a current diagnosis for this admission?: Yes - Additional Information Resuscitation Status: Full Code Discharge Diet: Cardiac Discharge Activity: Activity As Tolerated, Balance Activity w/Rest Prescriptions: Docusate Sodium [Colace 100 mg Capsule] 100 mg PO DAILY #30 capsule Home Medications: Amlodipine Besylate [Norvasc 5 mg Tablet] 5 mg PO DAILY 01/03/18 Irbesartan/Hydrochlorothiazide [Avalide 300-12.5 mg Tablet] 1 tab PO DAILY 01/03 Linaclotide [Linzess] 290 mg PO DAILY 01/03/18 Metoprolol Succinate [Toprol Xl 50 mg Tab.sr] 150 mg PO Q12 01/03/18 Omeprazole 40 mg PO DAILY 01/03/18 Acetaminophen [Tylenol 325 mg Tablet] 650 mg PO Q4HP PRN tablet 01/05/18 Docusate Sodium [Colace 100 mg Capsule] 100 mg PO DAILY #30 capsule 01/05/18 History of Present Illness History of Present Illness: Per H&P by Dr. Ga: BOB ROD is a 72 year old female female with history of multiple medical problems that will be mentioned below who was recently admitted for GI bleeding and discharged on Sunday. She was advised to stop her Coumadin. She later saw her primary care physician on Sunday who started her on Xarelto for her chronic atrial fibrillation. Today she presented to the emergency room with acute onset of bright red bleeding per rectum. She admits to mild generalized weakness and denies any melena. No chest pain or dyspnea or palpitations or cough or wheezing or hemoptysis. No nausea or vomiting or hematemesis. No other bleeding diathesis. She denies any fever or chills. No abdominal pain. She admits to mild dizziness. Upon presentation to the emergency room blood pressure was 135/86 and vital signs were within normal otherwise. Her labs were remarkable for anemia with hemoglobin of 9 and hematocrit of 26.3. Hemoglobin has come down from 10.2 on . She will be admitted to a medically monitored bed for further evaluation and management. Hospital Course Hospital Course: The patient was admitted to the medical floor on a contious cardiac telemetry. Her home prescribed Xarelto and ASA were held. The following morning, the patient noted a decreased amount of BRBPR; stating that she observed only blood streaks mixed with stools. The day of discharge, the patient did not see any evidence of blood in stools. She was transfused 1 unit PRBC, provided gentle IVF and her diet advanced. Serial CBC were monitored; her Hgb was noted to stabilize. Hgb 9.0--> 7.9--> 8.7 (s/p 1 unit)--> 8.8--> 8.7 Cardiology was consulted; recommended the patient follow up with her repatcher to further discuss the riskss/benefits of chronic anticoagulation with history of moderate GI bleeding requiring 1 unit PRBC while on Xarelto with previous bleed on Coumadin. [id number] Score: 3.2% stroke risk per year HAS-BLED Score: 5.8% major bleed risk per year At time of discharge, the patient was in stable condition, tolerating a regular diet, with no antione blood noted in stools that morning. She was advised to follow up with her primary care provider within 1 week, her repatcher within 2-4 weeks, and with Dr. Carrera as scheduled to review biopsy results from previous colonoscopy. We also discussed when to return to the emergency room if she again noted blood in stools. Physical Exam Vital Signs: Temp Pulse Resp BP Pulse Ox 98.2 F 71 18 139/68 H 99 01/05/18 12:18 01/05/18 12:18 01/05/18 12:18 01/05/18 12:01/05/18 12:18 General appearance: PRESENT: no acute distress, cooperative, obese, well- developed, well-nourished Head exam: PRESENT: atraumatic, normocephalic Eye exam: PRESENT: conjunctiva pink, EOMI, PERRLA. ABSENT: scleral icterus Ear exam: PRESENT: normal external ear exam Mouth exam: PRESENT: moist, tongue midline Neck exam: ABSENT: carotid bruit, JVD, lymphadenopathy, thyromegaly Respiratory exam: PRESENT: clear to auscultation aristides, symmetrical, unlabored. ABSENT: rales, rhonchi, wheezes Cardiovascular exam: PRESENT: irregular rhythm, +S1, +S2. ABSENT: diastolic murmur, rubs, systolic murmur Pulses: PRESENT: normal dorsalis pedis pul Vascular exam: PRESENT: normal capillary refill GI/Abdominal exam: PRESENT: normal bowel sounds, soft. ABSENT: distended, guarding, mass, organolmegaly, rebound, tenderness Rectal exam: PRESENT: deferred Extremities exam: PRESENT: full ROM. ABSENT: calf tenderness, clubbing, pedal edema Neurological exam: PRESENT: alert, awake, oriented to person, oriented to place , oriented to time, oriented to situation, CN II-XII grossly intact. ABSENT: motor sensory deficit Psychiatric exam: PRESENT: appropriate affect, normal mood. ABSENT: homicidal ideation, suicidal ideation Skin exam: PRESENT: dry, intact, warm. ABSENT: cyanosis, rash Results Laboratory Results: 01/05/18 06:35 01/05/18 06:35 Qualifiers - * PATIENT BEING DISCHARGED WITH ANY OF THE FOLLOWING DIAGNOSIS: No Plan Discharge Plan: The patient is discharged to home with self care. Follow-up with primary care provider within 1 week. Follow-up with repatcher within 2-4 weeks to discuss atrial fibrillation and recommendations against chronic anticoagulation. Follow-up with Dr. Carrera as scheduled to review biopsy results from previous colonoscopy. Return to the emergency department as needed for concerning symptoms.
== END 2018-01-05 12:31 | disposition home or self-care (01) | DRG 378 ==
LOC: ER 16:43 → EH 19:17 → 5 19:50
PROVIDERS: ADMIT Family Medicine; ATTEND Family Medicine
PROC: 30233N1 Transfusion of Nonautologous Red Blood Cells into Peripheral Vein, Percutaneous Approach (ICD-10-PCS; principal; 2018-01-03)
DX: K62.5 Hemorrhage of anus and rectum (principal); D62 Acute posthemorrhagic anemia; K57.31 Diverticulosis of large intestine without perforation or abscess with bleeding; K21.9 Gastro-esophageal reflux disease without esophagitis; I10 Essential (primary) hypertension; I48.2 Chronic atrial fibrillation; G47.30 Sleep apnea, unspecified; E78.00 Pure hypercholesterolemia, unspecified; Z79.01 Long term (current) use of anticoagulants; Z79.899 Other long term (current) drug therapy; Z95.0 Presence of cardiac pacemaker; Z90.49 Acquired absence of other specified parts of digestive tract; Z90.710 Acquired absence of both cervix and uterus; Z80.9 Family history of malignant neoplasm, unspecified; Z83.6 Family history of other diseases of the respiratory system; Z88.6 Allergy status to analgesic agent; Z88.0 Allergy status to penicillin
CPT/HCPCS: 36415; 36430; 80048; 80053; 83690; 84443; 85025; 85027; 85610; 85730; 86850; 86900; 86901; 86920; 93005; 93010; 99284; J7030; P9016

== ENCOUNTER → 2018-05-16 | Outpatient (CLI) | payer MEDICARE ==
--- NOTE | 2018-05-16 10:56 | RADIOLOGY REPORT (SQ) ---
EXAM DESCRIPTION: CT ABD/PELVIS NO ORAL OR IV COMPLETED DATE/TIME: 05/16/2018 10:22 am REASON FOR STUDY: CALCULUS OF KIDNEY (N20.0) N20.0 CALCULUS OF KIDNEY COMPARISON: None. TECHNIQUE: CT scan of the abdomen and pelvis performed without intravenous or oral contrast. Images reviewed with lung, soft tissue, and bone windows. Reconstructed coronal and sagittal MPR images revi ewed. All images stored on PACS. All CT scanners at this facility use dose modulation, iterative reconstruction, and/or weight based d osing when appropriate to reduce radiation dose to as low as reasonably achievable (ALARA). [facility]: Dose Right [facility]: CareDose [facility]: Dose Right [facility]: Teradose 4D [facility]: Smart Technologies RADIATION DOSE: CT Rad equipment meets quality standard of care and radiation dose reduction techniq ues were employed. CTDIvol: 22.6 mGy. DLP: 1362 mGy-cm.mGy. LIMITATIONS: None. FINDINGS: LOWER CHEST: Lung bases are clear. Cardiomegaly with pacemaker. NON-CONTRASTED LIVER, SPLEEN, ADRENALS: 2 cm benign right adrenal nodule. Liver, spleen, left adrena l gland unremarkable PANCREAS: No masses. No peripancreatic inflammatory changes. GALLBLADDER: Post cholecystectomy RIGHT KIDNEY AND URETER: No suspicious masses. Assessment limited by lack of IV contrast. 2.6 x 0.8 cm right upper pole staghorn calculus, 324 Hounsfield units. 5 mm right lower pole intrarenal nonob structive stone. No hydronephrosis or hydroureter. LEFT KIDNEY AND URETER: No suspicious masses. Assessment limited by lack of IV contrast. 1.7 cm ronan l cortical cyst left upper pole kidney. 5 cm left midpole renal cortical cyst. 2 mm left lower pole intrarenal nonobstructive stone No hydronephrosis or hydroureter. AORTA AND RETROPERITONEUM: No aneurysm. No retroperitoneal masses or adenopathy. BOWEL AND PERITONEAL CAVITY: No CT evidence of bowel obstruction or free intraperitoneal air or fluid . There is descending and sigmoid colon diverticulosis without CT signs of acute diverticulitis APPENDIX: Normal. PELVIS, BLADDER, AND ABDOMINAL WALL:Post hysterectomy. Bladder unremarkable. No adenopathy or free fluid. BONES: Degenerative disc changes and facet arthropathy lower lumbar spine OTHER: No other significant finding. IMPRESSION: 2.6 x 0.8 cm right upper pole staghorn calculus 324 Hounsfield units. 5 mm right lower pole intrarenal stone, 2 mm left lower pole intrarenal stone. No ureteral calculi or hydronephrosis/ hydroureter. COMMENT: Quality ID # [id number]: Final reports with documentation of one or more dose reduction techniques (e.g., Automated exposure control, adjustment of the mA and/or kV according to patient size, use of iterative reconstruction technique) TECHNICAL DOCUMENTATION: JOB ID: [id number] [employer]- All Rights Reserved Reading location - IP/workstation name: [email or web address]
== END ==
LOC: RAD 10:03
PROVIDERS: ATTEND Physician Assistant
DX: N20.0 Calculus of kidney (principal)
CPT/HCPCS: 74176

== ENCOUNTER 2018-12-06 01:18 | Emergency (ER) | payer MEDICARE, OTHER ==
[2018-12-06 03:48] LABS: ABSOLUTE EOSINOPHILS # (AUTO) 0.1 10^3/uL (0.0-0.6); ABSOLUTE LYMPHOCYTES (AUTO) 0.6 10^3/uL (0.5-4.7); ABSOLUTE MONOCYTES (AUTO) 0.6 10^3/uL (0.1-1.4); ABSOLUTE NEUT (AUTO) 8.8 10^3/uL (1.7-8.2); BASOPHILS % (AUTO) 0.5 % (0-2); EOSINOPHILS % (AUTO) 0.7 % (0-6); HEMATOCRIT 43.3 % (36.0-47.0); HEMOGLOBIN 14.6 g/dL (12.0-15.5); LYMPHOCYTES % (AUTO) 5.8 % (13-45); MEAN CORPUSCULAR HEMOGLOBIN 29.8 pg (27.0-33.4); MEAN CORPUSCULAR HGB CONC 33.7 g/dL (32.0-36.0); MEAN CORPUSCULAR VOLUME 89 fl (80-97); MONOCYTES % (AUTO) 6.3 % (3-13); PLATELET COUNT 207 10^3/uL (150-450); RED BLOOD COUNT 4.89 10^6/uL (3.72-5.28); RED CELL DISTRIBUTION WIDTH 14.3 % (11.5-14.0); SEGMENTED NEUTROPHILS % (AUTO) 86.7 % (42-78); TOTAL CELLS COUNTED % (AUTO) 100 %; WHITE BLOOD COUNT 10.1 10^3/uL (4.0-10.5)
[2018-12-06 03:58] LABS: INTERNATIONAL RATION (INR) 0.97; PROTHROMBIN TIME 13.4 SEC (11.4-15.4)
[2018-12-06 03:59] LABS: PARTIAL THROMBOPLASTIN TIME 25.5 SEC (23.5-35.8)
[2018-12-06 04:09] LABS: ALANINE AMINOTRANSFERASE 17 U/L (9-52); ALBUMIN 3.9 g/dL (3.5-5.0); ALKALINE PHOSPHATASE 82 U/L (38-126); ANION GAP 11 (5-19); ASPARTATE AMINO TRANSFERASE 21 U/L (14-36); BILIRUBIN,DIRECT 0.3 mg/dL (0.0-0.4); BILIRUBIN,TOTAL 0.9 mg/dL (0.2-1.3); BLOOD UREA NITROGEN 25 mg/dL (7-20); CALCIUM 9.3 mg/dL (8.4-10.2); CARBON DIOXIDE 28 mmol/L (22-30); CHLORIDE 103 mmol/L (98-107); GLUCOSE 129 mg/dL (75-110); POTASSIUM 3.4 mmol/L (3.6-5.0); SODIUM 142.3 mmol/L (137-145)
--- NOTE | 2018-12-06 06:32 | ER Document Report ---
ED General - General Chief Complaint: Rectal Bleeding Stated Complaint: RECTAL BLEEDING Time Seen by Provider: 12/06/18 06:30 Primary Care Provider: JHONY WEEMS [NO LOCAL MD] - Follow up as needed Notes: 73-year-old lady on anticoagulation stopped several days ago for GI bleeding presents with ongoing rectal bleeding. She been having it for about a week. It got worse last night and is tapering off this morning. She is actually prepping for colonoscopy and has had loose stool all night, supposed to have it done today at [address] Carrera. She denies lightheadedness vomiting or abdominal pain. TRAVEL OUTSIDE OF THE [place] IN LAST 30 DAYS: No - Related Data Allergies/Adverse Reactions: codeine [Codeine] Allergy (Verified 12/06/18 07:16) Penicillins Allergy (Verified 12/06/18 07:16) Past Medical History - Social History Smoking Status: Never Smoker Family History: None, Malignancy - In her mother, Other - Emphysema in her father - Past Medical History Cardiac Medical History: Reports: Hx Atrial Fibrillation, Hx Hypercholesterolemia, Hx Hypertension Pulmonary Medical History: Reports: Hx Sleep Apnea Neurological Medical History: Denies: Hx Seizures Renal/ Medical History: Denies: Hx Peritoneal Dialysis GI Medical History: Reports: Hx Diverticulitis, Hx Gastroesophageal Reflux Disease Past Surgical History: Reports: Hx Cardiac Surgery - pacemaker, Hx Cholecystectomy, Hx Hysterectomy, Hx Orthopedic Surgery - L wrist, Hx Pacemaker - Recently placed in November 2017 - Immunizations Hx Diphtheria, Pertussis, Tetanus Vaccination: Yes Hx Pneumococcal Vaccination: 04/27/18 Review of Systems - Review of Systems Notes: REVIEW OF SYSTEMS GEN: Denies fever, chills, weight loss ENT: Denies sore throat, nasal discharge, ear pain EYES: Denies blurry vision, eye pain, discharge CV: Denies chest pain, palpitations, edema RESP: Denies cough, shortness of breath, wheezing GI: Rectal bleeding MSK: Denies joint pain/swelling, edema, SKIN: Denies rash, skin lesions LYMPH: Denies swollen glands/lymph nodes NEURO: Denies headache, focal weakness or numbness, dizziness PSYCH: Denies depression, suicidal or homicidal ideation PHYSICAL EXAMINATION General: No acute distress, well-nourished Head: Atraumatic, normocephalic ENT: Mouth normal, oropharynx moist, no exudates or tonsillar enlargement Eyes: Conjunctiva normal, pupils equal, lids normal Neck: No JVD, supple, no guarding CVS: Normal rate, regular rhythm, no murmurs Resp: No resp distress, equal and normal breath sounds bilaterally GI: Nondistended, soft, no tenderness to palpation, no rebound or guarding Ext: No deformities, no edema, normal range of motion in upper and lower ext Back: No CVA or midline TTP Skin: No rash, warm Lymphatic: No lymphadeopathy noted Neuro: Awake, alert. Face symmetric. GCS 15. Physical Exam - Vital signs Vitals: Temp Pulse Resp BP Pulse Ox 97.8 F 86 18 143/89 H 95 12/06/18 01:48 12/06/18 01:48 12/06/18 01:48 12/06/18 01:48 12/06/18 01:48 Course - Re-evaluation Re-evalutation: 12/06/18 13:16 Patient with no diverticular bleeding off antiregulation now presents with crescendo now decreasing rectal bleeding. Vital signs are normal. Hemoglobin 11.5, unchanged from 1 month ago. Repeat hemoglobin in ED, did not drop significantly, and spoke with Dr. Carrera who wants the patient to be discharged so he can do the colonoscopy at 1030. She and her daughter are comfortable with this and I believe that is a safe and prudent choice. I have discussed with the patient there likely diagnosis, aftercare plan, follow-up plans and my usual and customary return precautions. They verbalized understanding of this. - Vital Signs Vital signs: Temp Pulse Resp BP Pulse Ox 98.0 F 84 20 144/98 H 96 12/06/18 08:16 12/06/18 08:16 12/06/18 08:16 12/06/18 08:16 12/06/18 08:16 - Laboratory Result Diagrams: 12/06/18 06:45 12/06/18 03:27 Laboratory results interpreted by me: 12/06/18 12/06/18 12/06/18 03:27 03:27 06:45 RDW 14.3 H 14.2 H Seg Neutrophils % 86.7 H 86.0 H Lymphocytes % 5.8 L 8.4 L Absolute Neutrophils 8.8 H Potassium 3.4 L BUN 25 H Est GFR ( Amer) 53 L Est GFR (Non-Af Amer) 44 L Glucose 129 H Discharge - Discharge Clinical Impression: Rectal bleeding Condition: Good Disposition: HOME, SELF-CARE Instructions: Rectal Bleeding, Unclear Cause (OM) Additional Instructions: Please call your gastrointestinal specialist and schedule your colonoscopy. We saw no evidence of acute blood loss today and you are safe to be discharged. Referrals: LOCALMD,NO [NO LOCAL MD] - Follow up as needed
[2018-12-06 06:54] LABS: ABSOLUTE LYMPHOCYTES (AUTO) 0.8 10^3/uL (0.5-4.7); ABSOLUTE MONOCYTES (AUTO) 0.4 10^3/uL (0.1-1.4); ABSOLUTE NEUT (AUTO) 7.7 10^3/uL (1.7-8.2); BASOPHILS % (AUTO) 0.4 % (0-2); EOSINOPHILS % (AUTO) 0.3 % (0-6); HEMATOCRIT 41.5 % (36.0-47.0); HEMOGLOBIN 13.8 g/dL (12.0-15.5); LYMPHOCYTES % (AUTO) 8.4 % (13-45); MEAN CORPUSCULAR HEMOGLOBIN 29.7 pg (27.0-33.4); MEAN CORPUSCULAR HGB CONC 33.3 g/dL (32.0-36.0); MEAN CORPUSCULAR VOLUME 89 fl (80-97); MONOCYTES % (AUTO) 4.9 % (3-13); PLATELET COUNT 202 10^3/uL (150-450); RED BLOOD COUNT 4.65 10^6/uL (3.72-5.28); RED CELL DISTRIBUTION WIDTH 14.2 % (11.5-14.0); TOTAL CELLS COUNTED % (AUTO) 100 %
[2018-12-06 08:17] VITALS: BP 144/98
== END 2018-12-06 08:17 | disposition home or self-care (01) ==
LOC: ER 01:18
DX: K62.5 Hemorrhage of anus and rectum (principal); R19.4 Change in bowel habit; I10 Essential (primary) hypertension; I48.91 Unspecified atrial fibrillation; Z79.01 Long term (current) use of anticoagulants; Z87.19 Personal history of other diseases of the digestive system; Z88.5 Allergy status to narcotic agent; Z88.0 Allergy status to penicillin; Z95.0 Presence of cardiac pacemaker
CPT/HCPCS: 36415; 80053; 85025; 85610; 85730; 99283

== ENCOUNTER → 2018-12-10 | Outpatient (CLI) | payer MEDICARE, OTHER ==
[2018-12-10 10:00] LABS: HEMATOCRIT 37.8 % (36.0-47.0); HEMOGLOBIN 12.6 g/dL (12.0-15.5); MEAN CORPUSCULAR HEMOGLOBIN 29.6 pg (27.0-33.4); MEAN CORPUSCULAR HGB CONC 33.4 g/dL (32.0-36.0); MEAN CORPUSCULAR VOLUME 89 fl (80-97); PLATELET COUNT 220 10^3/uL (150-450); RED BLOOD COUNT 4.26 10^6/uL (3.72-5.28); RED CELL DISTRIBUTION WIDTH 14.2 % (11.5-14.0); WHITE BLOOD COUNT 6.2 10^3/uL (4.0-10.5)
== END ==
LOC: LAB 09:40
PROVIDERS: ATTEND Internal Medicine Gastroenterology
DX: K57.30 Diverticulosis of large intestine without perforation or abscess without bleeding (principal); K62.5 Hemorrhage of anus and rectum
CPT/HCPCS: 36415; 85027

== ENCOUNTER → 2019-03-14 | Outpatient (CLI) | payer MEDICARE, OTHER ==
--- NOTE | 2019-03-14 13:00 | RADIOLOGY REPORT (SQ) ---
EXAM DESCRIPTION: CT ABD/PELVIS NO ORAL OR IV COMPLETED DATE/TIME: 03/14/2019 9:53 am REASON FOR STUDY: CALCULUS OF KIDNEY N20.0 CALCULUS OF KIDNEY COMPARISON: CT abdomen pelvis 05/16/2018, 06/27/2012 TECHNIQUE: CT scan of the abdomen and pelvis performed without intravenous or oral contrast. Images reviewed with lung, soft tissue, and bone windows. Reconstructed coronal and sagittal MPR images revi ewed. All images stored on PACS. All CT scanners at this facility use dose modulation, iterative reconstruction, and/or weight based d osing when appropriate to reduce radiation dose to as low as reasonably achievable (ALARA). [facility]: Dose Right [facility]: CareDose [facility]: Dose Right [facility]: Teradose 4D [facility]: Smart Technologies RADIATION DOSE: CT Rad equipment meets quality standard of care and radiation dose reduction techniq ues were employed. CTDIvol: 29.8 mGy. DLP: 1781 mGy-cm.mGy. LIMITATIONS: None. FINDINGS: LOWER CHEST: No significant findings. No nodules or infiltrates. NON-CONTRASTED LIVER, SPLEEN, ADRENALS: Evaluation limited by lack of IV contrast. 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 No left adrenal nodule PANCREAS: No masses. No peripancreatic inflammatory changes. GALLBLADDER: Surgically absent RIGHT KIDNEY AND URETER: No suspicious masses. Assessment limited by lack of IV contrast. Posterior right mid-pole kidney intrarenal nonobstructive 1 cm stone, 160 Hounsfield units in density. No hy dronephrosis or hydroureter. LEFT KIDNEY AND URETER: No suspicious masses. Assessment limited by lack of IV contrast. Multiple le ft renal cortical cysts, the largest is 5.5 cm in the left upper pole kidney. No significant calcifi cations. No hydronephrosis or hydroureter. AORTA AND RETROPERITONEUM: No aneurysm. No retroperitoneal masses or adenopathy. BOWEL AND PERITONEAL CAVITY: No obvious masses or inflammatory changes. No free fluid. Descending an d sigmoid colon diverticuli without CT signs of acute diverticulitis APPENDIX: Normal. PELVIS, BLADDER, AND ABDOMINAL WALL:No abnormal masses. No free fluid. Bladder normal. Post hysterec alejandrina BONES: No significant findings. OTHER: No other significant finding. IMPRESSION: Right posterior midpole intrarenal nonobstructive stone. No ureteral calculi or hydrone phrosis/hydroureter. COMMENT: Quality ID # [id number]: Final reports with documentation of one or more dose reduction techniques (e.g., Automated exposure control, adjustment of the mA and/or kV according to patient size, use of iterative reconstruction technique) TECHNICAL DOCUMENTATION: JOB ID: [id number] [employer]- All Rights Reserved Reading location - IP/workstation name: [email or web address]
== END ==
LOC: RAD 09:11
PROVIDERS: ATTEND Urology
DX: N20.0 Calculus of kidney (principal); K57.30 Diverticulosis of large intestine without perforation or abscess without bleeding; Q61.02 Congenital multiple renal cysts; Z90.710 Acquired absence of both cervix and uterus
CPT/HCPCS: 74176

== ENCOUNTER → 2020-04-22 | Outpatient (CLI) | payer MEDICARE, OTHER ==
[2020-04-22 10:59] LABS: HEMATOCRIT 45.8 % (36.0-47.0); HEMOGLOBIN 15.4 g/dL (12.0-15.5); MEAN CORPUSCULAR HEMOGLOBIN 31.1 pg (27.0-33.4); MEAN CORPUSCULAR HGB CONC 33.7 g/dL (32.0-36.0); MEAN CORPUSCULAR VOLUME 92 fl (80-97); PLATELET COUNT 180 10^3/uL (150-450); RED BLOOD COUNT 4.96 10^6/uL (3.72-5.28); RED CELL DISTRIBUTION WIDTH 14.5 % (11.5-14.0); WHITE BLOOD COUNT 6.1 10^3/uL (4.0-10.5)
== END ==
LOC: OD 09:14
PROVIDERS: ATTEND Internal Medicine Cardiovascular Disease
DX: I48.21 Permanent atrial fibrillation (principal); Z95.811 Presence of heart assist device; Z95.818 Presence of other cardiac implants and grafts
CPT/HCPCS: 36415; 82565; 85027

== ENCOUNTER 2020-06-01 06:20 | Day surgery (SDC) | payer MEDICARE, OTHER ==
[~2020-06-01 06:20] MED LIST: BUPIVACAINE HCL 0.75% INJ/PF (7.5 MG/1 ML) 10 ML SDV OD PRN; KETOROLAC TROMETHAMINE 0.45% 4 DROP/0.4 ML DROPERETTE OD PRN; LIDOCAINE 4% INJ/PF (40 MG/ML) 5 ML AMPUL OD PRN
[2020-06-01] MEDS: TROPICAMIDE 1% OPH SOLN 15 ML OD PRN ×3 (06:55→07:07)
[2020-06-01] MEDS: BESIFLOXACIN HCL 0.6% OPH SUSP 5 ML BOTTLE OD PRN ×4 (06:55→07:54)
[2020-06-01] MEDS: CYCLOPENTOLATE 0.2%/PHENYLEPHRINE 1% OPH SOLN 2 ML OD PRN ×3 (06:55→07:07)
[2020-06-01] MEDS: TETRACAINE HCL 0.5% OPH SOLN 4 ML OD PRN ×3 (06:55→07:36)
[2020-06-01] MEDS ORDERED: ONDANSETRON HCL INJ/PF 4 MG/2 ML SDV ONE (07:03)
[2020-06-01] MEDS ORDERED: MIDAZOLAM 2 MG/2 ML INJ ONE (07:03)
[2020-06-01] MEDS ORDERED: FENTANYL CITRATE INJ/PF 100 MCG/2 ML AMPUL ONE (07:03)
[2020-06-01] MEDS ORDERED: LIDOCAINE 1% INJ-PF (10 MG/ML) 30 ML SDV ONE (07:16)
[2020-06-01] MEDS ORDERED: EPINEPHRINE INJ/PF 1 MG/1 ML AMPULE ONE (07:16)
[2020-06-01] MEDS ORDERED: CHONDR SU A NA/HYALUR INTRAOC KIT (SURGICARE) ONE (07:17)
[2020-06-01] MEDS: PREDNISOLONE ACETATE 1% OPH SUSP 5 ML OD PRN ×2 (07:54)
[2020-06-01] MEDS: DORZOLAMIDE HCL 2%/TIMOLOL MALEAT 0.5% OPH SOLN 10 ML OD PRN ×2 (07:54)
--- NOTE | 2020-06-01 08:55 | Operative Report ---
Operative Report-[facility] Operative Report: DATE OF SURGERY: 06/01/2020 PREOPERATIVE DIAGNOSIS: CATARACT, RIGHT EYE. POSTOPERATIVE DIAGNOSIS: CATARACT, RIGHT EYE. PROCEDURE PERFORMED: PHACOEMULSIFICATION WITH POSTERIOR CHAMBER INTRAOCULAR LENS, RIGHT EYE. Intraocular Lens Model : SN 60 WF 20.0 Total Phaco Time: 12.11 CDE SURGEON: MITZI DU MD ANESTHESIA: TOPICAL WITH MAC. INDICATIONS FOR SURGERY: Difficulty reading road signs and words on TV. PROCEDURE: The patient was brought to the Operating Room and placed on the operative table. Following tetracaine drops, topical anesthesia was administered. This consisted of instrument wipe pledgets soaked in a solution of 4% Xylocaine mixed with 0.75% Marcaine in a 1:2 ratio. A 2 x 1 cm pledget was placed in the superior fornix. A 1 x 1 cm pledget was placed in the inferior fornix. The eye was patched shut for 5 minutes. The patch was removed. The eye was sterilely prepped and draped in the usual manner. Lid speculum was placed in the eye. The pledgets were removed. 4-0 black silk sutures were placed around the superior and the inferior rectus muscles to be used as traction. A conjunctival peritomy was made at the 10 o'clock position. Hemostasis was obtained with bipolar cautery. A posterior limbal groove was created using a crescent knife and dissected anteriorly towards the cornea. A sharp point blade was used to create a paracentesis site at the 2 o'clock position. 0.2 cc non preserved Lidocaine was injected into the anterior chamber. A 2.4 mm keratome was used to enter the anterior chamber through the groove. Viscoelastic was injected into the anterior chamber. An anterior capsulotomy was performed using Utrata forceps in a capsulorrhexis fashion. Hydrodissection and hydrodelineation were performed. Phacoemulsification was performed in [id number] technique. Following this, the I/A unit was used to remove residual cortex. Viscoelastic was injected into the capsular bag. The Intraocular lens was placed in the capsular bag. The I/A unit was used to remove residual viscoelastic. The wound was seen to be watertight under high and low pressure, and no sutures were placed. The intraocular lens was well centered. The pressure was adjusted in the eye to normal pressure. The 4-0 black silk sutures and lid speculum were removed. The eye was shielded after Besivance. prednisolone, and Cosopt drops were placed. The patient tolerated the procedure well and was sent to the Recovery Room in good condition.
== END 2020-06-01 08:27 | disposition home or self-care (01) ==
LOC: SC 06:20
PROVIDERS: ATTEND Ophthalmology
DX: H25.811 Combined forms of age-related cataract, right eye (principal); H40.013 Open angle with borderline findings, low risk, bilateral; H04.123 Dry eye syndrome of bilateral lacrimal glands; H01.001 Unspecified blepharitis right upper eyelid; H01.004 Unspecified blepharitis left upper eyelid; I48.91 Unspecified atrial fibrillation; I10 Essential (primary) hypertension; Z95.0 Presence of cardiac pacemaker; E66.9 Obesity, unspecified; K21.9 Gastro-esophageal reflux disease without esophagitis
CPT/HCPCS: 66984; V2632; J2250; J3490 ×5; A9270; J0171; J2405; 142; J3010

== ENCOUNTER 2020-06-22 07:46 | Day surgery (SDC) | payer MEDICARE ==
[~2020-06-22 07:46] MED LIST changes: -BUPIVACAINE HCL 0.75% INJ/PF (7.5 MG/1 ML) 10 ML SDV OD PRN; +BUPIVACAINE HCL 0.75% INJ/PF (7.5 MG/1 ML) 10 ML SDV OS PRN; +CHONDR SU A NA/HYALUR INTRAOC KIT (SURGICARE) ONE; +EPINEPHRINE INJ/PF 1 MG/1 ML AMPULE ONE; -KETOROLAC TROMETHAMINE 0.45% 4 DROP/0.4 ML DROPERETTE OD PRN; +KETOROLAC TROMETHAMINE 0.45% 4 DROP/0.4 ML DROPERETTE OS PRN; +LIDOCAINE 1% INJ-PF (10 MG/ML) 30 ML SDV ONE; -LIDOCAINE 4% INJ/PF (40 MG/ML) 5 ML AMPUL OD PRN; +LIDOCAINE 4% INJ/PF (40 MG/ML) 5 ML AMPUL OS PRN
[2020-06-22] MEDS: TETRACAINE HCL 0.5% OPH SOLN 4 ML OS PRN ×3 (08:10→08:49)
[2020-06-22] MEDS: BESIFLOXACIN HCL 0.6% OPH SUSP 5 ML BOTTLE OS PRN ×4 (08:10→09:13)
[2020-06-22] MEDS: CYCLOPENTOLATE 0.2%/PHENYLEPHRINE 1% OPH SOLN 2 ML OS PRN ×3 (08:10→08:32)
[2020-06-22] MEDS: TROPICAMIDE 1% OPH SOLN 15 ML OS PRN ×3 (08:10→08:32)
[2020-06-22] MEDS ORDERED: MIDAZOLAM 2 MG/2 ML INJ ONE (08:30)
[2020-06-22] MEDS: DORZOLAMIDE HCL 2%/TIMOLOL MALEAT 0.5% OPH SOLN 10 ML OS PRN ×2 (09:13)
[2020-06-22] MEDS: PREDNISOLONE ACETATE 1% OPH SUSP 5 ML OS PRN ×2 (09:13)
--- NOTE | 2020-06-22 12:35 | Operative Report ---
Operative Report-[facility] Operative Report: DATE OF SURGERY: June 22, 2020 PREOPERATIVE DIAGNOSIS: CATARACT, LEFT EYE. POSTOPERATIVE DIAGNOSIS: CATARACT, LEFT EYE. PROCEDURE PERFORMED: PHACOEMULSIFICATION WITH POSTERIOR CHAMBER INTRAOCULAR LENS, LEFT EYE. Intraocular Lens Model : SN 60 WF 20.0 Total Phaco Time: 5.74 CDE SURGEON: MITZI DU MD ANESTHESIA: TOPICAL WITH MAC. INDICATIONS FOR SURGERY: Difficultly driving at night PROCEDURE: The patient was brought to the Operating Room and placed on the operative table. Following tetracaine drops, topical anesthesia was administered. This consisted of instrument wipe pledgets soaked in a solution of 4% Xylocaine mixed with 0.75% Marcaine in a 1:2 ratio. A 2 x 1 cm pledget was placed in the superior fornix. A 1 x 1 cm pledget was placed in the inferior fornix. The eye was patched shut for 5 minutes. The patch was removed. The eye was sterilely prepped and draped in the usual manner. Lid speculum was placed in the eye. The pledgets were removed. 4-0 black silk sutures were placed around the superior and the inferior rectus muscles to be used as traction. A conjunctival peritomy was made at the 10 o'clock position. Hemostasis was obtained with bipolar cautery. A posterior limbal groove was created using a crescent knife and dissected anteriorly towards the cornea. A sharp point blade was used to create a paracentesis site at the 2 o'clock position. 0.2 cc non preserved Lidocaine was injected into the anterior chamber. A 2.4 mm keratome was used to enter the anterior chamber through the groove. Viscoelastic was injected into the anterior chamber. An anterior capsulotomy was performed using Utrata forceps in a capsulorrhexis fashion. Hydrodissection and hydrodelineation were performed. Phacoemulsification was performed in [id number] technique. Following this, the I/A unit was used to remove residual cortex. Viscoelastic was injected into the capsular bag. The Intraocular lens was placed in the capsular bag. The I/A unit was used to remove residual viscoelastic. The wound was seen to be watertight under high and low pressure, and no sutures were placed. The intraocular lens was well centered. The pressure was adjusted in the eye to normal pressure. The 4-0 black silk sutures and lid speculum were removed. The eye was shielded after Besivance,prednisolone, and Cosopt drops were placed. The patient tolerated the procedure well and was sent to the Recovery Room in good condition.
== END 2020-06-22 09:49 ==
LOC: SC 07:46
PROVIDERS: ATTEND Ophthalmology
DX: H25.812 Combined forms of age-related cataract, left eye (principal); H40.013 Open angle with borderline findings, low risk, bilateral; Z96.1 Presence of intraocular lens; I48.91 Unspecified atrial fibrillation; I10 Essential (primary) hypertension
CPT/HCPCS: 66984; V2632; J2250; J3490 ×5; A9270; J0171